=== PATIENT | male | born 1950 | race Caucasian/White ===

== ENCOUNTER 2016-08-30 10:11 | Day surgery (SDC) | payer MEDICARE, OTHER ==
--- NOTE | 2016-08-18 06:09 | HP ---
DATE OF ADMISSION: 08/30/2016 CHIEF COMPLAINT: History of colon polyps. HISTORY OF PRESENT ILLNESS: Patient is a 66-year-old male who was seen in the office today. He has a history of a large rectal polyp that did require low anterior resection in 2004. He is due for a colonoscopy as his last colonoscopy was approximately 5 to 7 years ago. He admits to chronic loose stools. Denies any rectal bleeding or melena. Patient recently had labs performed which revealed a elevated ALT and AST 124 and 76 with a bilirubin of 1.3. Alkaline phosphatase normal at 61. That led to an ultrasound being performed which showed gallstones. The patient denies abdominal pain at this time. He does have strong family history of cholecystectomy, however. He has a sister who had a history of pancreatic cancer in the past. No history of underlying liver disease. No heavy alcohol use in the past. No significant risk factors for hepatitis. PAST MEDICAL HISTORY: Obesity, colon polyps. Past surgical history is low anterior resection, kidney stones. MEDICATIONS: 1. AcipHex. 2. Hydrocodone. ALLERGIES: None. PHYSICAL EXAM: GENERAL: Well-developed, well-nourished male in no distress. HEENT is normocephalic. Sclerae nonicteric. CHEST: Clear. ABDOMEN: Soft, nontender, nondistended. IMPRESSION: A 66-year-old male being scheduled for colonoscopy on 08/30. We additionally discussed the recent findings of cholelithiasis based on his ultrasound. I do not believe that that is contributing to his elevated liver enzymes at this time. Repeat LFTs including hepatitis panel was advised. If the liver enzyme elevation persists, would consider CAT scan of the abdomen. The patient and I discussed in detail the symptoms to monitor for as it pertains to his underlying cholelithiasis. He will contact me if he begins experiencing any biliary symptoms ( ).
[2016-08-25 13:43] VITALS: BMI 34.4
[~2016-08-30 10:11] MED LIST: LACTATED RINGERS 1,000 ML IV SCH; LIDOCAINE 1% 20 ML VIAL (10MG/ML) FOR IV START INTRADERMA PRN
[2016-08-30 11:02] VITALS: RESP 16; TEMP 97.4
[2016-08-30] MEDS ORDERED: PROPOFOL 10 MG/ML 20 ML VIAL IV ONE (11:10)
--- NOTE | 2016-08-30 11:14 | P.HPADDEND ---
H&P Addendum H&P Addendum Date: 08/30/16 Patient's bowel habits are now back to normal. We'll proceed with colonoscopy today as a screening study.
--- NOTE | 2016-08-30 11:32 | P.PCN ---
Date of Procedure: 08/30/16 Procedure(s) Performed: PREOPERATIVE DIAGNOSIS: Colon cancer screening POSTOPERATIVE DIAGNOSIS: Diverticulosis PROCEDURE: Colonoscopy ANESTHESIA: MAC SURGEON: Shamar Magaña M.D. SPECIMENS: None ENDOSCOPIC PROCEDURE: The patient was placed on the endoscopy table in the left decubitus position. The Olympus colonoscope was inserted into the anus and passed under direct visualization to the base of the cecum. The appendiceal orifice was visualized. From that point the scope was slowly withdrawn inspecting all surfaces carefully. There were no neoplastic inflammatory or polypoid lesions throughout the cecum, ascending, transverse, descending and rectum. There was mild sided diverticulosis present in the left side of the colon. Prior colorectal anastomosis appeared normal. Digital rectal examination was normal. The patient was taken to the recovery room in stable condition per anesthesia guidelines. RECOMMENDATIONS: Increase fiber. Follow colonoscopy 5 years.
[2016-08-30 12:17] VITALS: BP 130/77; PULSE 77
== END 2016-08-30 12:18 | disposition home or self-care (01) ==
LOC: ORWHC2ENDO 10:11
PROVIDERS: ATTEND Surgery
DX: Z12.11 Encounter for screening for malignant neoplasm of colon (principal); Z86.010 Personal history of colon polyps; K57.30 Diverticulosis of large intestine without perforation or abscess without bleeding; K21.9 Gastro-esophageal reflux disease without esophagitis; Z79.891 Long term (current) use of opiate analgesic; Z79.899 Other long term (current) drug therapy; Z91.041 Radiographic dye allergy status
CPT/HCPCS: J2704; G0105; 99153

== ENCOUNTER 2017-11-17 18:21 | Observation (INO) | payer MEDICARE ==
--- NOTE | 2017-11-17 19:01 | ED ---
Chest Pain HPI - General Source: patient, RN notes reviewed Mode of arrival: wheelchair Limitations: no limitations - History of Present Illness MD Complaint: chest pain, other <Oc Hartley - Last Filed: 11/17/17 19:01> <Jim Costa - Last Filed: 11/17/17 23:18> - General Chief Complaint: Chest Pain Stated Complaint: Chest pain Time Seen by Provider: 11/17/17 18:37 - History of Present Illness Initial Comments: This is a 67-year-old male with a history of cholecystectomy in July which didn't apparently demonstrate stage III precancerous cells who had a bile duct resection on November 02 at [facility] who presents today with complaints of intermittent episodes of left-sided chest pain sharp in nature. The first episode was 2 days ago lasting about 30 seconds. Yesterday he had a couple episodes of occurred early in the morning and then today at least 2 other episodes. The pain when it does come on is rather severe currently he is pain- free at this time he denies any fevers chills nausea vomiting or sweats he does complain feeling short of breath however. He does feel like he has labored breathing he has no known history of heart or lung disease. No cough or phlegm production or other symptoms at this time (Oc Hartley) - Related Data Home Medications Medication Instructions Recorded Confirmed Hydrocodone/Acetaminophen [Vicodin 1 tab PO DIRECTED PRN 08/25/16 11/17/17 Hp 10-300 mg Tablet] Magnesium Hydroxide [Milk of 400 mg PO BID 11/17/17 11/17/17 Magnesia] Pantoprazole Sodium [Protonix] 20 mg PO DAILY 11/17/17 11/17/17 Allergies Allergy/AdvReac Type Severity Reaction Status Date / Time Iodinated Contrast- Oral and Allergy Itching Verified 11/17/17 18:30 IV Dye [Iodinated Contrast Media - Oral and] Review of Systems ROS Other: All systems not noted in ROS Statement are negative. <Oc Hartley - Last Filed: 11/17/17 19:01> ROS Other: All systems not noted in ROS Statement are negative. <Jim Costa - Last Filed: 11/17/17 23:18> ROS Statement: Those systems with pertinent positive or pertinent negative responses have been documented in the HPI. EKG Findings - EKG Results: EKG: interpreted by ERMD (Normal sinus rhythm of 81 a NJ interval 146 QRS duration 106 daily since QTC 386/448 evidence a left axis deviation no acute ST- T wave changes.) <Oc Hartley - Last Filed: 11/17/17 19:01> Past Medical History Additional Past Medical History / Comment(s): HX OF COLON POLYP, HX OF KIDNEY STONES, CURRENT GALLSTONE, CHRONIC BACK PAIN History of Any Multi-Drug Resistant Organisms: None Reported Past Surgical History: Bowel Resection, Cholecystectomy Additional Past Surgical History / Comment(s): LITHOTRIPSY bile duct resection Past Anesthesia/Blood Transfusion Reactions: No Reported Reaction Past Psychological History: No Psychological Hx Reported Smoking Status: Never smoker Past Alcohol Use History: None Reported Past Drug Use History: None Reported - Past Family History Sister(s) Family Medical History: Cancer <Oc Hartley - Last Filed: 11/17/17 19:01> General Exam Limitations: no limitations General appearance: alert, anxious Head exam: Present: atraumatic, normocephalic, normal inspection Eye exam: Present: normal appearance, PERRL, EOMI. Absent: scleral icterus, conjunctival injection, periorbital swelling ENT exam: Present: normal exam, mucous membranes moist Neck exam: Present: normal inspection. Absent: tenderness, meningismus, lymphadenopathy Respiratory exam: Present: chest wall tenderness (Tenderness palpation of the left costochondral margin no step-off or crepitation), decreased breath sounds ( Slightly diminished breath sounds no focal consolidations). Absent: respiratory distress, wheezes, rales, rhonchi, stridor Cardiovascular Exam: Present: regular rate, normal rhythm, normal heart sounds. Absent: systolic murmur, diastolic murmur, rubs, gallop, clicks GI/Abdominal exam: Present: soft, normal bowel sounds, other (Well-healed midline surgical scar evidence of wound dehiscence no erythema no drainage suture lines are clean.). Absent: distended, tenderness, guarding, rebound, rigid, pulsatile mass, hernia Rectal exam: Present: deferred Extremities exam: Present: normal inspection, full ROM, normal capillary refill. Absent: tenderness, pedal edema, joint swelling, calf tenderness Back exam: Present: normal inspection Neurological exam: Present: alert, oriented X3, CN II-XII intact Psychiatric exam: Present: normal affect, normal mood Skin exam: Present: warm, dry, intact, normal color. Absent: rash <Oc Hartley - Last Filed: 11/17/17 19:01> <Jim Costa - Last Filed: 11/17/17 23:18> - General Exam Comments Initial Comments: This is a well-developed well-nourished awake alert oriented 3 male (Oc Hartley) Course <NaeemOc - Last Filed: 11/17/17 19:01> <Jim Costa - Last Filed: 11/17/17 23:18> Vital Signs 11/17/17 18:27 Temperature 96.9 F L Pulse Rate 90 Respiratory 18 Rate Blood Pressure 153/93 O2 Sat by Pulse 99 Oximetry - Reevaluation(s) Reevaluation #1: 11/17/17 19:02 The patient's care will be endorsed to Dr. Costa (Oc Hartley) Critical Care Time <NaeemOc - Last Filed: 11/17/17 19:01> Total Critical Care Time: 60 <Jim Costa - Last Filed: 11/17/17 23:18> Critical Care Time: The patient presented with the chest pain, it hurts with a deep breaths and he also had a true major surgeries one day and this [facility] them as well as gallbladder and one in [place] that was seen initially at down bilateral duct surgery there and cardiac workup was unremarkable d-dimer is elevated we ruled out pulmonary embolism by proceeding with a CT chest angiogram I noticed his AST and ALT and alk phos days as elevated troponin was negative considering his pain with a deep breath CT angiogram was done and then he also had a pain in in the epigastric area and the pain along the incision considering that we do the CT of the abdomen CT Abdomen showed some mom and gas in the anterior abdominal wall along the side of the incision as well as in the knee L block I got hold of Dr. Yojana Herrera in [place] to discuss that with her Dr. Yojana Herrera recommended that she will get hold of him next week and she will follow-up with the patient she is not too concerned about gas in the along the incision considering his chest pain though he has been ruled out but for to evaluate him further from the cardiac, or cardiology standpoint he be admitted for 3 sets of cardiac markers under Dr. Phan service and cardiology be consulted this was discussed with the patient needs he is agreeable with (Jim Costa) Disposition <Oc Hartley - Last Filed: 11/17/17 19:01> <Jim Costa - Last Filed: 11/17/17 23:18> Clinical Impression: Chest pain, Elevated d-dimer, Abdominal pain Disposition: ADMITTED IP TO THIS [facility] Condition: Good Referrals: Valente Nash DO [Primary Care Provider] - 1-2 days
[2017-11-17 19:04] LABS: Basophils % (A) 0 %; Eosinophils # (A) 0.3 k/uL (0-0.7); Eosinophils % (A) 3 %; HCT 50.9 % (39.0-53.0); Lymphocytes # (A) 1.6 k/uL (1.0-4.8); Lymphocytes % (A) 16 %; MCH 29.6 pg (25.0-35.0); MCHC 33.5 g/dL (31.0-37.0); MCV 88.4 fL (80.0-100.0); Mean Platelet Volume 6.2; Monocytes # (A) 0.7 k/uL (0-1.0); Monocytes % (A) 7 %; Neutrophils # (A) 7.2 k/uL (1.3-7.7); Neutrophils % (A) 71 %; Platelet Count 358 k/uL (150-450); RBC 5.76 m/uL (4.30-5.90); RDW 12.6 % (11.5-15.5); WBC 10.1 k/uL (3.8-10.6)
[2017-11-17 19:15] LABS: ALT 138 U/L (21-72); AST 137 U/L (17-59); Albumin 4.4 g/dL (3.5-5.0); Alkaline Phosphatase 216 U/L (38-126); Amylase 62 U/L (30-110); Anion Gap 18 mmol/L; Blood Urea Nitrogen 19 mg/dL (9-20); Calcium 10.1 mg/dL (8.4-10.2); Carbon Dioxide 24 mmol/L (22-30); Chloride 104 mmol/L (98-107); Glucose 94 mg/dL (74-99); Lipase 191 U/L (23-300); Magnesium 2.3 mg/dL (1.6-2.3); Potassium 4.1 mmol/L (3.5-5.1); Sodium 146 mmol/L (137-145); Total Bilirubin 1.1 mg/dL (0.2-1.3); Total Protein 7.5 g/dL (6.3-8.2)
[2017-11-17 19:17] LABS: Partial Thromboplastin Time 25.1 sec (22.0-30.0)
[2017-11-17 19:18] LABS: Creatine Kinase 55 U/L (55-170)
[2017-11-17 19:22] LABS: D-Dimer 1.13 mg/L FEU (<0.60)
--- NOTE | 2017-11-17 19:22 | XR ---
EXAMINATION TYPE: XR chest 2V DATE OF EXAM: 11/17/2017 COMPARISON: None HISTORY: 67-year-old male with chest pain TECHNIQUE: PA and lateral views FINDINGS: Heart is borderline in size. Elongated/ectatic thoracic aorta. Diffuse interstitial prominence has a chronic appearance. No consolidation or pleural effusion. IMPRESSION: 1. Borderline heart size. 2. Elongated or ectatic/dilated thoracic aorta. 3. Chronic-appearing changes, possible bronchitis or asthma.
[2017-11-17] MEDS ORDERED: RX INFO: IV CONTRAST WAS GIVEN 1 EACH MISC MISCELLANE PRN (19:29)
[2017-11-17] MEDS ORDERED: methylPREDNISolone SOD SUCCI 125 MG/2 ML VIAL IV STA (19:30)
[2017-11-17] MEDS ORDERED: diphenhydrAMINE 50 MG/ML 1 ML VIAL IVP STA (19:30)
[2017-11-17 19:31] LABS: Creatine Kinase MB 0.4 ng/mL (0.0-2.4); Troponin I <0.012 ng/mL (0.000-0.034)
[2017-11-17] MEDS ORDERED: FAMOTIDINE 20 MG/2 ML VIAL IV STA (19:31)
[2017-11-17] MEDS ORDERED: MORPHINE SULFATE 4 MG/0.8 ML SYRINGE (INJ) IVP PRN (19:33)
[2017-11-17] MEDS ORDERED: ONDANSETRON 4 MG/2 ML VIAL IVP STA (19:34)
--- NOTE | 2017-11-17 20:43 | CT ---
EXAMINATION TYPE: CT chest angio for PE DATE OF EXAM: 11/17/2017 COMPARISON: NONE HISTORY: 67-year-old male with epigastric and left-sided chest pain for 2 days. Cholecystectomy 2 mon ths ago and recent bile duct resection. Epigastric and left sided chest pain x 2 days. Elevated d-dim er. TECHNIQUE: Contiguous axial scanning of the chest performed with IV Contrast, patient injected with 1 00 mL of Isovue 370. Coronal/sagittal MIP reconstructions performed. CT DLP: 523.1 mGycm Automated exposure control for dose reduction was used. FINDINGS: Heart is upper limits of normal in size without pericardial effusion. Mild LAD calcifications are not ed. Ectatic ascending aorta 3.9 cm. Ectatic great vessels with conventional arch vessel branching anatomy . Large caliber to the main right and left pulmonary arteries and 3.1 and 2.8 cm, respectively, suggest ing underlying pulmonary arterial hypertension. There is respiratory motion artifact without definite pulmonary embolus. Some of the segmental and verduzco bsegmental branches of the lower lobes are nondiagnostic. No thoracic lymphadenopathy. Evaluation of the lungs show strandy bibasilar atelectasis, right greater than left. No consolidation or pleural effusion. There is a moderate-sized hiatal hernia and some herniating abdominal fat through the diaphragmatic h iatus as well. Remainder of the abdomen will be reported separately. Bones: No osseous destructive process. IMPRESSION: 1. RESPIRATORY MOTION ARTIFACTS. SOME OF THE SEGMENTAL BRANCHES OF THE LOWER LOBES ARE NONDIAGNOSTIC. NO DEFINITE PULMONARY EMBOLUS. 2. BORDERLINE HEART SIZE AND ENLARGED CENTRAL PULMONARY ARTERIES SUGGESTING PULMONARY ARTERIAL HYPERT ENSION. 3. ECTATIC ASCENDING AORTA (3.9 CM). 4. STRANDY BIBASILAR ATELECTASIS. 5. MODERATE-SIZED HIATAL HERNIA. 6. ABDOMEN REPORTED SEPARATELY.
--- NOTE | 2017-11-17 21:00 | CT ---
EXAMINATION TYPE: CT abdomen pelvis w con DATE OF EXAM: 11/17/2017 COMPARISON: 06/08/2013 HISTORY: 67-year-old Cholecystectomy 2 months ago and recent bile duct resection. Epigastric and left sided chest pain x 2 days. Elevated d-dimer. TECHNIQUE: Contiguous axial scanning of the abdomen and pelvis following administration of 100 ml Iso kellee 300 IV contrast. Delayed images through the kidneys and coronal/sagittal reconstructions perform ed. CT DLP: 1458.1 mGycm Automated exposure control for dose reduction was used. FINDINGS: Chest reported separately. Hiatal hernia as reported on that exam. It was present back in 2013. No focal liver lesion seen. There are postsurgical changes at the julia hepatis with surgical clips a nd staple line, possible hepaticojejunostomy. There is some wall thickening of bowel at this level wi th surrounding fat stranding, no abnormal bowel dilatation. Portal venous system is patent. No mesenteric or retroperitoneal lymphadenopathy seen. Gallbladder surgically absent. Adrenal glands, left kidney, spleen, and pancreas appear within normal limits. An exophytic lateral right renal cyst is enlarged from 2013 measuring 3.3 cm versus 2.3 cm at that ti me. Incidental right ureteral aortic left renal vein. There is some inflammatory fat stranding along the superior margin of the patient's midline incision site from prior laparotomy. Mottled air collection is present along the midline and right paramedian region measuring approximately 2.5 cm, referred to sagittal image 68. Mottled air collection is cente red along the linea alba and extends just superficial and just deep to the abdominal wall musculature /fascia. There is surrounding fat stranding. Possible finger of thickened soft tissue extending to th e anterior margin of the proximal third transverse colon, refer to sagittal images 68 through 75. How ever, no significant colonic wall thickening is identified. Mild stool in the right hemicolon. Bladder urine distended. Bulky prostate gland measuring 5.9 cm wide and 6.5 cm craniocaudal impressin g on the posterior bladder base. No abnormal fluid collection in the pelvis or pelvic lymphadenopathy seen. There seems to be anastomotic staple line along the rectosigmoid junction. Bones: Mild degenerative changes of the hips. No osseous destructive process. IMPRESSION: 1. VERTICAL MIDLINE ABDOMINAL INCISION. THERE IS SOME MOTTLED AIR ALONG THE SUPERIOR MARGIN OF THE IN CISION SITE MEASURING 2.5 CM. THIS AIR IS CENTERED IN THE LINEA ALBA WITH A SMALL AMOUNT OF AIR BOTH SUPERFICIAL AND DEEP TO THE ABDOMINAL WALL MUSCULATURE/FASCIA. CORRELATE TO TIME SINCE SURGERY. PO SSIBLE RESIDUAL POSTSURGICAL AIR. IF THE PATIENT'S SURGERY WAS MORE REMOTE, THIS COULD BE SECONDARY T O INFECTION OR LESS LIKELY A SMALL FISTULA WITH THE PROXIMAL TRANSVERSE COLON. AGAIN, CLINICAL CORREL ATION IS NEEDED. 2. SUSPECT HEPATICOJEJUNOSTOMY. THERE IS SOME FAT STRANDING SMALL BOWEL WALL THICKENING AT THE ANASTO MOTIC SITE SUGGESTING ENTERITIS. IF THE PATIENT'S SURGERY WAS VERY RECENT, RESIDUAL POSTSURGICAL INFL AMMATION IS ALSO POSSIBLE. 3. VERY BULKY PROSTATE GLAND MEASURING 5.9 X 6.5 CM. CORRELATE WITH PSA, PATIENT'S SYMPTOMS, AND PHYS ICAL EXAM FINDINGS.
[2017-11-17] MEDS ORDERED: NITROGLYCERIN SL TABS 0.4 MG TAB SUBLINGUAL PRN (23:18)
[2017-11-17] MEDS ORDERED: MORPHINE SULFATE 4 MG/0.8 ML SYRINGE (INJ) IV PRN (23:18)
[2017-11-17] MEDS ORDERED: HYDROcodone/APAP 10-325MG 1 EACH TAB PO PRN (23:23)
[2017-11-18 00:49] VITALS: BMI 32.1
[2017-11-18 01:58] LABS: Creatine Kinase 50 U/L (55-170)
[2017-11-18 02:10] LABS: Creatine Kinase MB 0.3 ng/mL (0.0-2.4); Troponin I <0.012 ng/mL (0.000-0.034)
[2017-11-18 07:39] LABS: Cholesterol 146 mg/dL (<200); HDL Cholesterol 43 mg/dL (40-60); LDL Cholesterol,Calculated 87 mg/dL (0-99); Triglycerides 78 mg/dL (<150)
[2017-11-18 07:46] LABS: Creatine Kinase MB 0.4 ng/mL (0.0-2.4)
[2017-11-18 08:08] LABS: Creatine Kinase 65 U/L (55-170); Troponin I <0.012 ng/mL (0.000-0.034)
[2017-11-18] MEDS ORDERED: LISINOPRIL 10 MG TAB PO SCH (09:00)
[2017-11-18] MEDS: PANTOPRAZOLE 40 MG TABLET PO SCH (09:43)
[2017-11-18] MEDS: MAGNESIUM OXIDE 400 MG TAB PO SCH ×2 (09:43→21:20)
--- NOTE | 2017-11-18 10:04 | CONS ---
CONSULTATION Mr. Alford is a 67-year-old gentleman who is seen for cardiac evaluation. This patient's history and medical records reviewed. Essentially this patient initially underwent cholecystectomy and subsequently the patient underwent biliary duct dissection at [facility]. The patient is having sharp pain for last few days. The pain is in the upper part of the abdominal incision with some radiation along the left costal margin. Patient feeling slightly nauseated. Denies any fever or chills. The pain comes and goes. The pain is not definitely not substernal pain. The pain is sharp and increases with deep breath. The patient did undergo CT scan of the chest as well as abdomen. There was no evidence of any pulmonary embolism. The ascending aorta was slightly tortuous. There was possible some air at the site of the upper part of the incision. PAST MEDICAL HISTORY: Includes history of chronic back pain. Recent cholecystectomy, history of kidney stones. Bowel resections. HOME MEDICATIONS: Include Vicodin and Protonix and milk of magnesia. PHYSICAL EXAMINATION: At present reveals a 67-year-old gentleman who does not appear to be in any acute distress. Blood pressure is 147/85 mmHg, oxygen saturation is 94%. The patient is afebrile. HEENT: Head and ENT examination is negative. NECK: Supple. There is no increase in jugular venous pressure. Both the carotid pulses are felt. There is no bruit. Chest is symmetrical. Heart the PMI is not felt. First and second heart sounds are normal. There is no evidence of any murmur. Lungs are clear to auscultation and percussion. ABDOMEN: Soft. There is a mild tenderness noted in the upper part of his abdomen. Bowel sounds are normal. Extremities, peripheral pulses 2+. The patient's EKGs and cardiac enzymes are normal. FINAL IMPRESSION: This patient is primarily having upper abdominal pain which most likely related to recent surgery and incision. Pain is not cardiac or ischemic in origin. EKGs and cardiac enzymes are normal. We will obtain an echo and Doppler study. The patient can be treated symptomatically as far as the abdominal pain is concerned. Once the patient feels better, we can see him as an outpatient and evaluate with a stress test. MMODL / IJN: [id number] /
--- NOTE | 2017-11-18 17:09 | P.HPIM ---
History of Present Illness H&P Date: 11/18/17 Chief Complaint: Epigastric pain Mr. Alford is a 67-year-old male with a past medical history of nephrolithiasis , chronic low back pain, recent cholecystectomy done in August 2017, recent bile duct resection on November 02 at [facility] due to stage III precancerous cells presented to the hospital with a chief complaint of epigastric pain. Patient states that she started to have epigastric pain for the past couple of days and yesterday morning it radiated to the left side of the chest that prompted him to come to the ED. Patient denies having any chest pain, nausea, vomiting. Patient denies having any fevers chills or rigors. He complains that his pain is mostly around the surgical site. Patient has been walking around in the hallways and does not come half the complaints of chest pain or epigastric pain currently. He denies having any orthopnea PND or lower extremity swelling. Review of Systems REVIEW OF SYSTEMS: PSYCH: No anxiety or depression NEURO:No c/o weakness of the extremties, No facial droop, No speech abnormalities. VASCULAR: Peripheral nervous system within the normal limits no edema HEMATOLOGIC: No history of easy bleeding and bruising . No recent infections . RESPIRATORY: No cough, No SOB, No chest discomfort. IMMUNE: No infections INTEGUMENT: no rashes OPHTHALMOLOGIC: No blurry vision and no eye discharge : No dysuria or hematuria CARDIAC: No chest pain , shortness of breath , paroxysmal nocturnal dyspnea MUSCULOSKELETAL : No Aches or pains in the joints or muscles. GI: As per HPI Past Medical History Additional Past Medical History / Comment(s): HX OF COLON POLYP, HX OF KIDNEY STONES, CURRENT GALLSTONE, CHRONIC BACK PAIN History of Any Multi-Drug Resistant Organisms: None Reported Past Surgical History: Bowel Resection, Cholecystectomy Additional Past Surgical History / Comment(s): LITHOTRIPSY, bile duct resection Past Anesthesia/Blood Transfusion Reactions: No Reported Reaction Past Psychological History: No Psychological Hx Reported Smoking Status: Never smoker Past Alcohol Use History: None Reported Past Drug Use History: None Reported - Past Family History Sister(s) Family Medical History: Cancer Medications and Allergies Home Medications Medication Instructions Recorded Confirmed Type Magnesium Hydroxide [Milk of 400 mg PO BID 11/17/17 11/18/17 History Magnesia] HYDROcodone/APAP 10-325MG [[place] 1 tab PO Q4HR PRN 11/18/17 11/18/17 History 10-325] Pantoprazole Sodium [Protonix] 40 mg PO DAILY 11/18/17 11/18/17 History RABEprazole SODIUM [Aciphex] 20 mg PO DAILY 11/18/17 11/18/17 History Allergies Allergy/AdvReac Type Severity Reaction Status Date / Time Iodinated Contrast- Oral and Allergy Itching Verified 11/18/17 11:12 IV Dye [Iodinated Contrast Media - Oral and] Physical Exam Vitals: Vital Signs Temp Pulse Pulse Pulse Resp BP BP 11/18/17 16:00 98.4 F 78 16 110/58 11/18/17 12:00 97.7 F 99 16 130/74 11/18/17 08:00 97.9 F 100 18 147/85 11/18/17 04:00 98.2 F 91 16 128/75 11/18/17 00:21 98.1 F 103 H 18 118/74 11/18/17 00:00 95 18 11/17/17 23:25 90 16 113/73 11/17/17 18:27 96.9 F L 90 18 153/93 Pulse Ox 11/18/17 16:00 96 11/18/17 12:00 95 11/18/17 08:00 94 L 11/18/17 04:00 95 11/18/17 00:21 94 L 11/18/17 00:00 11/17/17 23:25 97 11/17/17 18:27 99 Intake and Output 11/18/17 11/18/17 11/18/17 06:59 14:59 22:59 Other: Voiding Method Toilet Toilet Toilet # Voids 3 Weight 100.1 kg GENERAL EXAM GEN. APPEARANCE: alert, in no apparent distress HEAD EXAM: atraumatic, normocephalic, normal inspection EYE EXAM: normal appearance, PERRL, EOMI. Absent: scleral icterus, conjunctival injection, periorbital swelling ENT EXAM: normal exam, mucous membranes moist NECK EXAM: normal inspection. Absent: tenderness, meningismus, full ROM, lymphadenopathy RESPIRATORY EXAM: normal lung sounds bilaterally. Absent: respiratory distress , wheezes, rales, rhonchi, stridor CARDIOVASCULAR EXAM: regular rate, normal rhythm, normal heart sounds. Absent : systolic murmur, diastolic murmur, rubs, gallop, clicks GI/ABDOMINAL EXAM: Surgical scar in place no signs of infection. Bowel sounds are normal. No tenderness or rigidity or guarding. EXTREMITIES EXAM: normal inspection, full ROM, normal capillary refill. Absent : tenderness, pedal edema, joint swelling, calf tenderness NEUROLOGICAL EXAM: alert, oriented X3, CN II-XII intact, motor sensory deficit PSYCHIATRIC EXAM: normal affect, normal mood SKIN EXAM: warm, dry, intact, normal color. Absent: rash Results CBC & Chem 7: 11/17/17 18:50 11/17/17 18:50 Labs: Abnormal Lab Results - Last 24 Hours (Table) 11/17/17 11/17/17 11/18/17 Range/Units 18:50 18:50 01:17 D-Dimer 1.13 H (<0.60) mg/L FEU Sodium 146 H (137-145) mmol/L AST 137 H (17-59) U/L ALT 138 H (21-72) U/L Alkaline Phosphatase 216 H (38-126) U/L Total Creatine Kinase 50 L (55-170) U/L Thrombosis Risk Factor Assmnt - Choose All That Apply Each Factor Represents 1 point: Obesity (BMI >25) Each Risk Factor Represents 2 Points: Age 61-74 years Thrombosis Risk Factor Assessment Total Risk Factor Score: 3 Thrombosis Risk Factor Assessment Level: Moderate Risk Assessment and Plan Plan: ASSESSMENT Epigastric pain History of recent abdominal surgery done on 11/02/2017 - bile duct resection due to precancerous cells Elevated liver function tests Hypernatremia PLAN Patient did get a CAT scan of the abdomen and pelvis showing air around the superior margins of the incision site. Patient is currently asymptomatic. His elevation of LFTs can be secondary to his recent abdominal surgery. Patient also had a CT for PE that has been negative. We'll continue with the current medication regimen and further recommendations to follow depending on the progress of the patient.
[2017-11-18] MEDS ORDERED: ATORVASTATIN 40 MG TAB PO SCH (21:00)
[2017-11-19 07:59] VITALS: RESP 18
[2017-11-19 08:02] LABS: Basophils # (A) 0.1 k/uL (0-0.2); Basophils % (A) 1 %; Eosinophils # (A) 0.4 k/uL (0-0.7); Eosinophils % (A) 3 %; HGB 15.6 gm/dL (13.0-17.5); Lymphocytes # (A) 2.2 k/uL (1.0-4.8); Lymphocytes % (A) 17 %; MCH 30.3 pg (25.0-35.0); MCHC 33.2 g/dL (31.0-37.0); MCV 91.2 fL (80.0-100.0); Mean Platelet Volume 6.4; Monocytes # (A) 0.8 k/uL (0-1.0); Monocytes % (A) 6 %; Neutrophils # (A) 9.5 k/uL (1.3-7.7); Neutrophils % (A) 72 %; Platelet Count 350 k/uL (150-450); RBC 5.16 m/uL (4.30-5.90); RDW 12.8 % (11.5-15.5); WBC 13.2 k/uL (3.8-10.6)
[2017-11-19] MEDS: MAGNESIUM OXIDE 400 MG TAB PO SCH (08:06)
[2017-11-19] MEDS: PANTOPRAZOLE 40 MG TABLET PO SCH (08:06)
[2017-11-19 08:20] LABS: Albumin 3.9 g/dL (3.5-5.0); Calcium 9.7 mg/dL (8.4-10.2); Potassium 4.4 mmol/L (3.5-5.1); Total Bilirubin 0.7 mg/dL (0.2-1.3); Total Protein 6.8 g/dL (6.3-8.2)
[2017-11-19] MEDS ORDERED: MORPHINE ORAL SOLN 10 MG/5 ML CUP PO PRN ×2 (08:50→09:14)
--- NOTE | 2017-11-19 10:17 | ECHOF ---
Referral Reason:chest pain MEASUREMENTS -------- HEIGHT: 175.3 cm WEIGHT: 99.8 kg BP: 107/55 RVIDd: 3.7 cm (< 3.3) IVSd: 1.4 cm (0.6 - 1.1) LVIDd: 4.2 cm (3.9 - 5.3) LVPWd: 1.4 cm (0.6 - 1.1) IVSs: 1.9 cm LVIDs: 2.9 cm LVPWs: 1.7 cm LA Diam: 3.4 cm (2.7 - 3.8) LAESV Index (A-L): 27.80 ml/m Ao Diam: 3.9 cm (2.0 - 3.7) AV Cusp: 2.5 cm (1.5 - 2.6) MV EXCURSION: 14.924 mm (> 18.000) MV EF SLOPE: 78 mm/s (70 - 150) EPSS: 1.6 cm MV E Gilles: 0.92 m/s MV DecT: 180 ms MV A Gilles: 0.68 m/s MV E/A Ratio: 1.36 AR PHT: 732 ms RAP: 5.00 mmHg RVSP: 21.84 mmHg FINDINGS -------- Sinus rhythm. This was a technically adequate study. The left ventricular size is normal. There is moderate concentric left ventricular hypertrophy. O verall left ventricular systolic function is normal with, an EF between 55 - 60 %. The right ventricle is mildly enlarged. Normal LA size by volume 22+/-6 ml/m2. The right atrium is normal in size. There is mild aortic valve sclerosis. There is mild aortic regurgitation. Mild mitral annular calcification present. There is trace mitral regurgitation. Mild tricuspid regurgitation present. Right ventricular systolic pressure is normal at < 35 mmHg. Trace/mild (physiologic) pulmonic regurgitation. The aortic root is dilated measuring 3.9cm. There is no pericardial effusion. CONCLUSIONS -------- 1. Sinus rhythm. 2. This was a technically adequate study. 3. The left ventricular size is normal. 4. There is moderate concentric left ventricular hypertrophy. 5. Overall left ventricular systolic function is normal with, an EF between 55 - 60 %. 6. The right ventricle is mildly enlarged. 7. Normal LA size by volume 22+/-6 ml/m2. 8. The right atrium is normal in size. 9. There is mild aortic valve sclerosis. 10. There is mild aortic regurgitation. 11. Mild mitral annular calcification present. 12. There is trace mitral regurgitation. 13. Mild tricuspid regurgitation present. 14. Right ventricular systolic pressure is normal at < 35 mmHg. 15. Trace/mild (physiologic) pulmonic regurgitation. 16. The aortic root is dilated measuring 3.9cm. 17. There is no pericardial effusion. EXHIBITION SPECIALIST: Vanessa Moody RDCS
[2017-11-19] MEDS ORDERED: MAGNESIUM HYDROXIDE 2,400 MG/10 ML CUP PO PRN (11:26)
[2017-11-19] MEDS ORDERED: SENNOSIDES 8.6 MG TAB PO PRN (11:27)
[2017-11-19 12:25] VITALS: BP 101/63; PULSE 66; TEMP 98
--- NOTE | 2017-11-19 22:59 | DS ---
DISCHARGE SUMMARY DATE OF ADMISSION: 11/17/2017 DATE OF DISCHARGE: 11/19/2017 DISCHARGE MEDICATIONS: 1. Milk of magnesia. 2. Senokot as needed for constipation. He is to continue his medications at home, includin. Acton. 2. Protonix. 3. AcipHex. He has not been administered any new medications at this time. He is to follow up with me in one week and follow up with Dr. Yarbrough in 2 weeks. TESTS DONE AT THE TIME OF ADMISSION: 1. Echocardiogram, which was unremarkable. 2. Chest CTA, with findings consistent with prior surgery with some strandy bibasilar atelectasis, moderate-sized hiatal hernia. HOSPITAL COURSE: The patient is a pleasant 67-year-old white male who recently underwent a bile duct resection on November 02 at [facility] due to stage III pre-cancerous cells. He presented to the hospital with acute chest/epigastric abdominal pain, found to have some free air or a little bit of retained air under the diaphragm. He was worked up by Cardiology and did not seem to have any evidence of cardiac disease. FINAL DIAGNOSES: 1. Acute atypical chest pain, resolved, most likely secondary to bile duct resection from pre-cancerous cells. 2. Elevated liver function tests due to his previous surgery. 3. Hypernatremia. PLAN: Discharge with the following medications and followup in order. CTA was negative for PE. Continue his current medical regimen. MMYANDELL / JUANCARLOSN: [id number] /
== END 2017-11-19 13:03 | disposition home or self-care (01) ==
LOC: EC 18:21 → 3OBS 23:19
PROVIDERS: ADMIT Hospitalist; ATTEND Hospitalist
DX: R07.89 Other chest pain (principal); R10.13 Epigastric pain; R79.89 Other specified abnormal findings of blood chemistry; R11.0 Nausea; E87.0 Hyperosmolality and hypernatremia; R94.5 Abnormal results of liver function studies; K83.8 Other specified diseases of biliary tract; K44.9 Diaphragmatic hernia without obstruction or gangrene; M54.5 Low back pain; G89.29 Other chronic pain; E66.9 Obesity, unspecified; Z68.32 Body mass index [BMI] 32.0-32.9, adult; Z79.899 Other long term (current) drug therapy; Z91.041 Radiographic dye allergy status; Z87.442 Personal history of urinary calculi; Z86.010 Personal history of colon polyps; Z90.49 Acquired absence of other specified parts of digestive tract
CPT/HCPCS: 99291 ×2; 96374 ×2; 96375 ×4; 36415; 93005; 93306; 85379; 83880; 80061; 80053 ×2; 82150; 82550 ×2; 82553 ×2; 83690; 83735; 84484 ×2; 85025 ×2; 85610; 85730; 71046; 71275; 74177; G0378 ×3; J1200; J2930; J2405; Q9967

== ENCOUNTER → 2017-11-27 | Outpatient (CLI) | payer MEDICARE ==
--- NOTE | 2017-11-28 07:38 | CT ---
EXAMINATION TYPE: CT abdomen wo con DATE OF EXAM: 11/27/2017 HISTORY: Benign neoplasm of extrahepatic bile ducts CT DLP: 557.9 mGycm. Automated Exposure Control for Dose Reduction was Utilized. TECHNIQUE: CT scan of the abdomen is performed without oral or IV contrast. COMPARISON: Prior CT abdomen and pelvis November 17, 2017. Older CT June 08, 2013 FINDINGS: Within the limitations of a non-contrast study, the following observations are made. LUNG BASES: Linear scarring and/or atelectasis in the lingula is present near axial image 2.. LIVER/GB: Liver remains isodense relative to spleen consistent with mild diffuse fatty infiltration. Cholecystectomy clips are redemonstrated. There are sutures at level of julia hepatis near prominent tubular structure suspected hepatojejunal anastomosis redemonstrated. There is no suspicious intrahep atic or extra hepatic biliary dilatation. PANCREAS: No significant abnormality is seen. SPLEEN: No significant abnormality is seen. ADRENALS: No significant abnormality is seen. KIDNEYS: Retroaortic left renal vein which is normal variant is redemonstrated. Stable exophytic 3.3 cm cyst lower pole level right kidney laterally. BOWEL: There is hiatal hernia containing fat and small mesenteric vessels and small portion of stomac h redemonstrated. There are additional surgical sutures in mid small bowel loops in the mid central a bdomen near axial image 39. LYMPH NODES: No greater than 1cm abdominal lymph nodes are appreciated. OSSEOUS STRUCTURES: No significant abnormality is seen. OTHER: There is anterior vertical scar in the subcutaneous tissue. Anterior lateral scarring from lap aroscopic ports also identified. IMPRESSION: Postsurgical change redemonstrated near julia hepatis and mid small bowel. No new suspici ous mass or adenopathy identified.
== END | disposition home or self-care (01) ==
LOC: RADCTMAIN 18:29
PROVIDERS: ATTEND Surgery
DX: D13.5 Benign neoplasm of extrahepatic bile ducts (principal); Z98.890 Other specified postprocedural states
CPT/HCPCS: 74150

== ENCOUNTER → 2018-09-30 | Outpatient (CLI) | payer MEDICARE ==
--- NOTE | 2018-10-01 12:50 | MR ---
EXAMINATION TYPE: MR abdomen wo con DATE OF EXAM: 09/30/2018 COMPARISON: CT of the abdomen dated 11/27/[address] abdomen pelvis dated 11/09/2017 HISTORY: Benign neoplasm of extrahepatic bile ducts, hx of cholecystectomy, family hx pancreatic ca TECHNIQUE: Multiplanar, multisequence images of the abdomen were acquired without intravenous contras t. FINDINGS: There is marked decreased intensity geographically throughout the liver on out of phase imaging in co mparison to in phase imaging data with moderate grade hepatic steatosis. The liver is somewhat subopt imally evaluated due to respiratory motion. However no new intrahepatic biliary ductal dilatation or focal signal abnormality is seen on T2-weighted imaging. On T1 there is no focal hepatic mass seen. S urgical clips are seen at the julia hepatis creating susceptibility artifact. The jejunum is intimate ly associated with the julia hepatis and therefore there is continued suspicion for a hepaticojejunos henrry. Small hiatal hernia is present. The hernia defect also contains mesenteric fat and mesenteric vessels . The spleen and adrenal glands are unremarkable in morphology as is the pancreas. No pancreatic ductal dilatation. T2 hyperintense right renal cyst is exophytic from the lower pole measuring 3 cm. Otherwise the kidne ys are symmetric. No hydronephrosis. Left renal vein is retroaortic. There is mild diastases recti. Ventral midline scar is seen within the subcutaneous tissues. No dilated bowel is seen. No greater than 1 cm short axis lymph node is seen in the abdomen or pelvis. IMPRESSION: 1. No new intrahepatic biliary ductal dilatation in this patient status post biliary ductal resection at the julia hepatis and hepaticojejunostomy. No pancreatic ductal dilatation. No fluid collection w ithin the gallbladder fossa. No new adenopathy. Intravenous contrast would be recommended if it can b e given on subsequent surveillance exams. 2. Redemonstration of a small hiatal hernia with herniation of mesenteric fat and vasculature into th e posterior mediastinum.
== END | disposition home or self-care (01) ==
LOC: RADMRIMAIN 14:25
PROVIDERS: ATTEND Surgery
DX: Z08 Encounter for follow-up examination after completed treatment for malignant neoplasm (principal); K44.9 Diaphragmatic hernia without obstruction or gangrene; Z90.49 Acquired absence of other specified parts of digestive tract; Z85.09 Personal history of malignant neoplasm of other digestive organs
CPT/HCPCS: 74181

== ENCOUNTER → 2019-09-12 | Outpatient (CLI) | payer MEDICARE ==
--- NOTE | 2019-09-13 17:07 | MR ---
EXAMINATION TYPE: MR abdomen wo/w con DATE OF EXAM: 09/12/2019 COMPARISON: 09/30/2018 HISTORY: Liver disease CONTRAST: Standard multiplanar, multisequence MRI departmental protocol utilizing 7.5 mL intravenous Gadavist g adolinium contrast. Liver has normal size and contour. Spleen is intact. Stomach appears intact. There is no evidence of pancreatic mass. The bile ducts are not dilated. Pancreatic duct appears normal. Common bile duct leif arently has been resected and there is anastomosis of the common hepatic duct with the jejunum. The i ntrahepatic bile ducts are not dilated. There is hiatal hernia noted. There is no evidence of pleural effusion. There is no sign of ascites. Kidneys have normal size. Ther e is 3.5 cm cortical cyst lateral right kidney. There is no hydronephrosis. There is no pathologic en hancement. IMPRESSION: Previous surgery. No dilated ducts. No adverse change compared to old exam.
== END | disposition home or self-care (01) ==
LOC: RADMRIMAIN 11:06
PROVIDERS: ATTEND Surgery
DX: K74.0 Hepatic fibrosis (principal); Z98.890 Other specified postprocedural states
CPT/HCPCS: 74183; A9585

== ENCOUNTER 2019-10-10 15:42 | Emergency (ER) | payer MEDICARE ==
[2019-10-10] MEDS ORDERED: SODIUM CHLORIDE 0.9% 1,000 ML IV STA (16:33)
--- NOTE | 2019-10-10 16:45 | ED ---
Fever HPI - General Chief Complaint: Fever Stated Complaint: neck & head pain Time Seen by Provider: 10/10/19 16:08 Source: patient, RN notes reviewed Mode of arrival: ambulatory Limitations: no limitations - History of Present Illness Initial Comments: This is a 69-year-old male with a history of a bile duct resection in the past who states since the surgery in October 2017 he's been having intermittent episodes of upper abdominal pain with fever and chills he states it may be as frequently as every 2 weeks sometimes every 4 weeks and sometimes every 6 weeks he states he started having similar episodes except for less abdominal pain 2 days ago. He states it starts as a pain at the base of the skull and goes up to his scalp and he starts developing a fever he's had no earache sore throat rhinorrhea cough or phlegm production. Have an episode today of urinary incontinence but denies any focal weakness was upper or lower extremities. He does intermittently have back pain none right now. No dysuria no hematuria no other symptoms reported. He is found upon arrival have a temperature 101.6 somewhat tachycardic with a heart rate of 129. Lactic acidosis as likely improved and will not be redrawn at this time. MD Complaint: fever - Related Data Home Medications Medication Instructions Recorded Confirmed Magnesium Hydroxide [Milk of 400 mg PO BID 11/17/17 11/18/17 Magnesia] HYDROcodone/APAP 10-325MG [[place] 1 tab PO Q4HR PRN 11/18/17 11/18/17 10-325] Pantoprazole Sodium [Protonix] 40 mg PO DAILY 11/18/17 11/18/17 RABEprazole SODIUM [Aciphex] 20 mg PO DAILY 11/18/17 11/18/17 Previous Rx's Medication Instructions Recorded Magnesium Hydroxide [Milk of 1,200 mg PO QID PRN ml 11/19/17 Magnesia Concentrate] Sennosides [Senokot] 8.6 mg PO DAILY PRN tab 11/19/17 Amoxicillin/Potassium Clav 1 tab PO Q12HR 3 Days #20 tab 10/10/19 [Augmentin 875-125 Tablet] Allergies Allergy/AdvReac Type Severity Reaction Status Date / Time Iodinated Contrast Media Allergy Itching Verified 10/10/19 15:48 [Iodinated Contrast Media - Oral and] Review of Systems ROS Statement: Those systems with pertinent positive or pertinent negative responses have been documented in the HPI. ROS Other: All systems not noted in ROS Statement are negative. Past Medical History Additional Past Medical History / Comment(s): HX OF COLON POLYP, HX OF KIDNEY STONES, CURRENT GALLSTONE, CHRONIC BACK PAIN History of Any Multi-Drug Resistant Organisms: None Reported Past Surgical History: Bowel Resection, Cholecystectomy Additional Past Surgical History / Comment(s): LITHOTRIPSY, bile duct resection Past Anesthesia/Blood Transfusion Reactions: No Reported Reaction Past Psychological History: No Psychological Hx Reported Smoking Status: Never smoker Past Alcohol Use History: None Reported Past Drug Use History: None Reported - Past Family History Sister(s) Family Medical History: Cancer General Exam - General Exam Comments Initial Comments: This is a well-developed well-nourished awake alert oriented 3 male Limitations: no limitations General appearance: alert, in no apparent distress Head exam: Present: atraumatic, normocephalic, normal inspection, other (3 mild tennis palpation of the scalp no step-off or crepitation) Eye exam: Present: normal appearance, PERRL, EOMI. Absent: scleral icterus, conjunctival injection, periorbital swelling ENT exam: Present: normal exam, mucous membranes moist Neck exam: Present: normal inspection, full ROM, other (No stridor JVD or bruits). Absent: tenderness, meningismus, lymphadenopathy Respiratory exam: Present: normal lung sounds bilaterally. Absent: respiratory distress, wheezes, rales, rhonchi, stridor Cardiovascular Exam: Present: normal rhythm, tachycardia, normal heart sounds. Absent: systolic murmur, diastolic murmur, rubs, gallop, clicks GI/Abdominal exam: Present: soft, normal bowel sounds. Absent: distended, tenderness, guarding, rebound, rigid Extremities exam: Present: normal inspection, full ROM, normal capillary refill. Absent: tenderness, pedal edema, joint swelling, calf tenderness Back exam: Present: normal inspection. Absent: CVA tenderness (R), CVA tenderness (L) Neurological exam: Present: alert, oriented X3, CN II-XII intact Psychiatric exam: Present: normal affect, normal mood Skin exam: Present: warm, dry, intact, normal color. Absent: rash Course Vital Signs 10/10/19 10/10/19 10/10/19 15:43 18:01 18:43 Temperature 101.6 F H 98.7 F Pulse Rate 129 H 92 74 Respiratory 16 17 16 Rate Blood Pressure 150/107 118/70 130/83 O2 Sat by Pulse 95 96 98 Oximetry - Reevaluation(s) Reevaluation #1: 10/10/19 19:24 Reevaluation if she feels much improved. He has defervesced his heart rate is return to normal he did know is when he was urinating or rigidity did have some bilateral CVA pain. CAT scan was negative for acute findings. At this juncture the reasonable assumption is that there is urinary tract infection. Patient will be placed on appropriate IV and oral antibiotics we a long discussion Medical Decision Making - Medical Decision Making Patient is feeling much improved at this time he will be discharged we did a long discussion he would prefer to go home be placed on oral antibiotics he was cautioned about when to return versus just follow up with his doctor. He is in agreement with this. - Lab Data Result diagrams: 10/10/19 16:57 10/10/19 16:57 Lab Results 10/10/19 10/10/19 10/10/19 Range/Units 16:57 16:57 16:57 WBC 13.6 H (3.8-10.6) k/uL RBC 5.73 (4.30-5.90) m/uL Hgb 17.2 (13.0-17.5) gm/dL Hct 50.9 (39.0-53.0) % MCV 88.8 (80.0-100.0) fL MCH 30.0 (25.0-35.0) pg MCHC 33.8 (31.0-37.0) g/dL RDW 12.9 (11.5-15.5) % Plt Count 174 (150-450) k/uL Neutrophils % 82 % Lymphocytes % 6 % Monocytes % 8 % Eosinophils % 0 % Basophils % 0 % Neutrophils # 11.2 H (1.3-7.7) k/uL Lymphocytes # 0.8 L (1.0-4.8) k/uL Monocytes # 1.1 H (0-1.0) k/uL Eosinophils # 0.0 (0-0.7) k/uL Basophils # 0.0 (0-0.2) k/uL Sodium 135 L (137-145) mmol/L Potassium 4.1 (3.5-5.1) mmol/L Chloride 100 (98-107) mmol/L Carbon Dioxide 23 (22-30) mmol/L Anion Gap 12 mmol/L BUN 17 (9-20) mg/dL Creatinine 0.85 (0.66-1.25) mg/dL Est GFR (CKD-EPI)AfAm >90 (>60 ml/min/1.73 sqM) Est GFR (CKD-EPI)NonAf 90 (>60 ml/min/1.73 sqM) Glucose 134 H (74-99) mg/dL Plasma Lactic Acid Keith (0.7-2.0) mmol/L Calcium 9.3 (8.4-10.2) mg/dL Magnesium 2.0 (1.6-2.3) mg/dL Total Bilirubin 1.8 H (0.2-1.3) mg/dL AST 32 (17-59) U/L ALT 32 (4-49) U/L Alkaline Phosphatase 63 (38-126) U/L Total Protein 7.5 (6.3-8.2) g/dL Albumin 4.2 (3.5-5.0) g/dL Lipase 82 (23-300) U/L Urine Color Yellow Urine Appearance Clear (Clear) Urine pH 5.5 (5.0-8.0) Ur Specific [place] 1.034 (1.001-1.035) Urine Protein 1+ H (Negative) Urine Glucose (UA) Negative (Negative) Urine Ketones Trace H (Negative) Urine Blood Small H (Negative) Urine Nitrite Negative (Negative) Urine Bilirubin Negative (Negative) Urine Urobilinogen <2.0 (<2.0) mg/dL Ur Leukocyte Esterase Moderate H (Negative) Urine RBC 7 H (0-5) /hpf Urine WBC 6 H (0-5) /hpf Ur Squamous Epith Cells 1 (0-4) /hpf Urine Bacteria Rare H (None) /hpf Urine Mucus Many H (None) /hpf 10/10/19 Range/Units 16:57 WBC (3.8-10.6) k/uL RBC (4.30-5.90) m/uL Hgb (13.0-17.5) gm/dL Hct (39.0-53.0) % MCV (80.0-100.0) fL MCH (25.0-35.0) pg MCHC (31.0-37.0) g/dL RDW (11.5-15.5) % Plt Count (150-450) k/uL Neutrophils % % Lymphocytes % % Monocytes % % Eosinophils % % Basophils % % Neutrophils # (1.3-7.7) k/uL Lymphocytes # (1.0-4.8) k/uL Monocytes # (0-1.0) k/uL Eosinophils # (0-0.7) k/uL Basophils # (0-0.2) k/uL Sodium (137-145) mmol/L Potassium (3.5-5.1) mmol/L Chloride (98-107) mmol/L Carbon Dioxide (22-30) mmol/L Anion Gap mmol/L BUN (9-20) mg/dL Creatinine (0.66-1.25) mg/dL Est GFR (CKD-EPI)AfAm (>60 ml/min/1.73 sqM) Est GFR (CKD-EPI)NonAf (>60 ml/min/1.73 sqM) Glucose (74-99) mg/dL Plasma Lactic Acid Keith 3.1 H* (0.7-2.0) mmol/L Calcium (8.4-10.2) mg/dL Magnesium (1.6-2.3) mg/dL Total Bilirubin (0.2-1.3) mg/dL AST (17-59) U/L ALT (4-49) U/L Alkaline Phosphatase (38-126) U/L Total Protein (6.3-8.2) g/dL Albumin (3.5-5.0) g/dL Lipase (23-300) U/L Urine Color Urine Appearance (Clear) Urine pH (5.0-8.0) Ur Specific [place] (1.001-1.035) Urine Protein (Negative) Urine Glucose (UA) (Negative) Urine Ketones (Negative) Urine Blood (Negative) Urine Nitrite (Negative) Urine Bilirubin (Negative) Urine Urobilinogen (<2.0) mg/dL Ur Leukocyte Esterase (Negative) Urine RBC (0-5) /hpf Urine WBC (0-5) /hpf Ur Squamous Epith Cells (0-4) /hpf Urine Bacteria (None) /hpf Urine Mucus (None) /hpf - Radiology Data Radiology results: report reviewed (I did review the imaging and report no acute findings.), image reviewed Disposition Clinical Impression: Urinary tract infection, Leukocytosis Disposition: HOME SELF-CARE Condition: Good Instructions (If sedation given, give patient instructions): Fever in Adults (ED), Urinary Tract Infection in Men (ED) Additional Instructions: Prescription sent to preferred pharmacy Prescriptions: Amoxicillin/Potassium Clav [Augmentin 875-125 Tablet] 1 tab PO Q12HR 3 Days #20 tab Is patient prescribed a controlled substance at d/c from ED?: No Referrals: Valente Nash DO [Primary Care Provider] - 1-2 days
[2019-10-10 17:14] LABS: Basophils % (A) 0 %; Eosinophils % (A) 0 %; HCT 50.9 % (39.0-53.0); HGB 17.2 gm/dL (13.0-17.5); Lymphocytes # (A) 0.8 k/uL (1.0-4.8); Lymphocytes % (A) 6 %; MCHC 33.8 g/dL (31.0-37.0); MCV 88.8 fL (80.0-100.0); Mean Platelet Volume 6.7; Monocytes # (A) 1.1 k/uL (0-1.0); Monocytes % (A) 8 %; Neutrophils # (A) 11.2 k/uL (1.3-7.7); Neutrophils % (A) 82 %; Platelet Count 174 k/uL (150-450); RBC 5.73 m/uL (4.30-5.90); RDW 12.9 % (11.5-15.5); WBC 13.6 k/uL (3.8-10.6)
[2019-10-10 17:16] LABS: Appearance,Urine Clear (Clear); Bacteria,Urine Rare /hpf; Bilirubin,Urine Negative (Negative); Blood,Urine Small (Negative); Color,Urine Yellow; Glucose,Urine (UA) Negative (Negative); Ketones,Urine Trace (Negative); Leukocyte Esterase,Urine Moderate (Negative); Mucus,Urine Many /hpf; Nitrite,Urine Negative (Negative); PH, Urine 5.5 (5.0-8.0); Protein,Urine 1+ (Negative); RBC,Urine 7 /hpf (0-5); Specific Gravity,Urine 1.034 (1.001-1.035); Squamous Epithelial Cell,Urine 1 /hpf (0-4); Urobilinogen,Urine <2.0 mg/dL (<2.0); WBC,Urine 6 /hpf (0-5)
--- NOTE | 2019-10-10 17:18 | XR ---
EXAMINATION TYPE: XR chest 2V DATE OF EXAM: 10/10/2019 COMPARISON: 11/17/2017 HISTORY: Chest pain TECHNIQUE: FINDINGS: There is no heart failure nor confluent pneumonic infiltrate. Heart size is normal. Thoraci c aorta is tortuous and atherosclerotic. There is no pleural effusion. Thoracic spine is intact. Ther e are no hilar masses. IMPRESSION: Atherosclerotic tortuous thoracic aorta. No active cardiopulmonary disease. No adverse ch fran compared to old exam.
[2019-10-10] MEDS ORDERED: IPRATROPIUM-ALBUTEROL 3 ML NEB INHALATION STA (17:34)
[2019-10-10 17:35] LABS: ALT 32 U/L (4-49); AST 32 U/L (17-59); African American GFR (CKD) >90 (>60 ml/min/1.73 sqM); Albumin 4.2 g/dL (3.5-5.0); Alkaline Phosphatase 63 U/L (38-126); Anion Gap 12 mmol/L; Blood Urea Nitrogen 17 mg/dL (9-20); Calcium 9.3 mg/dL (8.4-10.2); Carbon Dioxide 23 mmol/L (22-30); Chloride 100 mmol/L (98-107); Glucose 134 mg/dL (74-99); Non-African American GFR(CKD) 90 (>60 ml/min/1.73 sqM); Potassium 4.1 mmol/L (3.5-5.1); Sodium 135 mmol/L (137-145); Total Bilirubin 1.8 mg/dL (0.2-1.3); Total Protein 7.5 g/dL (6.3-8.2)
[2019-10-10] MEDS ORDERED: SODIUM CHLORIDE 0.9% 2,000 ML IV ONE (17:51)
[2019-10-10] MEDS ORDERED: diphenhydrAMINE 50 MG/ML 1 ML VIAL IVP STA (18:06)
[2019-10-10] MEDS ORDERED: FAMOTIDINE 20 MG/2 ML VIAL IV STA (18:06)
[2019-10-10] MEDS ORDERED: methylPREDNISolone SOD SUCCI 125 MG/2 ML VIAL IV STA (18:06)
[2019-10-10] MEDS ORDERED: BARIUM SULFATE 450 ML ORAL.SUSP BOTTLE PO PRN (18:07)
[2019-10-10] MEDS ORDERED: PIPERACILLIN-TAZOBACTAM 3.375 GM in SODIUM CHLORIDE 0.9% 100 ML IVPB STA (18:07)
[2019-10-10 18:45] VITALS: TEMP 98.7
--- NOTE | 2019-10-10 18:52 | CT ---
EXAMINATION TYPE: CT abdomen pelvis w con DATE OF EXAM: 10/10/2019 COMPARISON: 11/27/2017 HISTORY: abdominal pain CT DLP: 1652.7 mGycm Automated exposure control for dose reduction was used. CONTRAST: Performed with IV Contrast, patient injected with 100 mL of Isovue 300. Multiple axial sections were obtained from the diaphragm to the floor the pelvis with oral and intrav enous contrast. Lung bases are clear of infiltrate. There is hiatal hernia. There is no pleural effusion. There is no pericardial effusion. Heart size is normal. There is small amount of air in the biliary tree. There are clips from cholecystectomy. There is no p ancreatic mass. Spleen is intact. Stomach has normal size. The bile ducts are not dilated. There is no adrenal mass. Kidneys have normal size and contour. There is no hydronephrosis. There is 3.8 cm cortical cyst lateral right kidney unchanged. Ureters are not dilated. There is no retroperito mery adenopathy. There are clips from sigmoid colon surgery. Prostate is enlarged and measures 6.3 cm . Urinary bladder is intact. There is no inguinal hernia. There is no free fluid in the pelvis. There is mild prostatic calcification. There is no mesenteric edema. There is no ascites or free air. There is no evidence of a bowel obstru ction. Appendix is not seen. Lumbar vertebra have normal alignment. Disc spaces are fairly normal. Posterior elements are intact. Bony pelvis is intact. IMPRESSION: Previous sigmoid colon surgery. Small amount of air in the biliary tree consistent with reflux. Alison cystectomy. No dilated ducts. No acute abnormality within the abdomen pelvis. Hiatal hernia unchanged .
[2019-10-10] MEDS ORDERED: AMOXIC-POT CLAV 875MG STARTER PACK 2 TAB BTL PO STA (19:31)
[2019-10-10 20:09] VITALS: BP 117/71; PULSE 79; RESP 20
== END 2019-10-10 20:25 | disposition home or self-care (01) ==
LOC: EC 15:42
DX: N39.0 Urinary tract infection, site not specified (principal); D72.829 Elevated white blood cell count, unspecified; Z79.899 Other long term (current) drug therapy; Z91.041 Radiographic dye allergy status; Z90.49 Acquired absence of other specified parts of digestive tract
CPT/HCPCS: 36415; 80053; 83605; 83690; 83735; 85025; 81001; 87040; 71046; 74177; 99284; 96365; 96375 ×3; 96361 ×2; J2543; J1200; J2930; Q9967

== ENCOUNTER 2020-07-14 15:28 | Inpatient (IN) | payer MEDICARE ==
[2020-07-14] MEDS ORDERED: ACETAMINOPHEN TAB 500 MG TAB PO STA (16:27)
[2020-07-14] MEDS ORDERED: SODIUM CHLORIDE 0.9% 1,000 ML IV STA ×2 (16:27)
[2020-07-14] MEDS ORDERED: SODIUM CHLORIDE 0.9% 1,000 ML IV ONE (16:27)
[2020-07-14] MEDS ORDERED: HYDROmorphone 1 MG/ML 1 ML SYRINGE IVP STA (16:28)
[2020-07-14] MEDS: SODIUM CHLORIDE 0.9% 1,000 ML IV SCH (16:37)
[2020-07-14 16:39] LABS: Basophils % (A) 0 %; Eosinophils % (A) 0 %; HGB 17.2 gm/dL (13.0-17.5); Lymphocytes # (A) 0.9 k/uL (1.0-4.8); Lymphocytes % (A) 5 %; MCH 29.9 pg (25.0-35.0); MCHC 33.1 g/dL (31.0-37.0); Mean Platelet Volume 6.5; Monocytes # (A) 0.6 k/uL (0-1.0); Monocytes % (A) 3 %; Neutrophils # (A) 17.9 k/uL (1.3-7.7); Neutrophils % (A) 91 %; Platelet Count 214 k/uL (150-450); RBC 5.76 m/uL (4.30-5.90); WBC 19.6 k/uL (3.8-10.6)
[2020-07-14 16:42] LABS: MCV 90.4 fL (80.0-100.0)
[2020-07-14 16:48] LABS: ALT 44 U/L (4-49); AST 29 U/L (17-59); African American GFR (CKD) >90 (>60 ml/min/1.73 sqM); Albumin 3.8 g/dL (3.5-5.0); Alkaline Phosphatase 52 U/L (38-126); Anion Gap 12 mmol/L; Blood Urea Nitrogen 18 mg/dL (9-20); Calcium 9.4 mg/dL (8.4-10.2); Carbon Dioxide 20 mmol/L (22-30); Chloride 103 mmol/L (98-107); Glucose 251 mg/dL (74-99); Lipase 61 U/L (23-300); Magnesium 1.8 mg/dL (1.6-2.3); Non-African American GFR(CKD) 80 (>60 ml/min/1.73 sqM); Potassium 4.4 mmol/L (3.5-5.1); Sodium 135 mmol/L (137-145); Total Bilirubin 1.9 mg/dL (0.2-1.3); Total Protein 7.1 g/dL (6.3-8.2)
[2020-07-14 16:54] LABS: INR 1.1 (<1.2); Partial Thromboplastin Time 26.4 sec (22.0-30.0)
[2020-07-14 16:58] LABS: D-Dimer 1.4 mg/L FEU (<0.60)
[2020-07-14] MEDS ORDERED: diphenhydrAMINE 50 MG/ML 1 ML VIAL IVP STA (17:16)
[2020-07-14] MEDS ORDERED: methylPREDNISolone SOD SUCCI 125 MG/2 ML VIAL IV STA (17:16)
[2020-07-14] MEDS ORDERED: FAMOTIDINE 20 MG/2 ML VIAL IV STA (17:16)
--- NOTE | 2020-07-14 17:16 | ED ---
Chest Pain HPI - General Chief Complaint: Chest Pain Stated Complaint: Chest/shoulder pain Time Seen by Provider: 07/14/20 16:03 Source: patient, RN notes reviewed, old records reviewed Mode of arrival: ambulatory Limitations: no limitations - History of Present Illness Initial Comments: Since a 70-year-old male presents the ER today for complaints of chest discomfort shortness of breath and pain between bilateral shoulder aches for the past day. He rest the emergency department with fever 101. Patient reports no significant cough. He reports that he's had intermittent fevers and discomfort like this in his had problems with his gallbladder and infected common bile duct after surgery in 2018. - Related Data Home Medications Medication Instructions Recorded Confirmed Pantoprazole Sodium [Protonix] 40 mg PO DAILY PRN 07/14/20 07/14/20 Tylenol (Unknown Strength) 3 tab PO ONETIME PRN 07/14/20 07/14/20 Vicodin (Unknown Strength) 1 tab PO ONETIME PRN 07/14/20 07/14/20 Allergies Allergy/AdvReac Type Severity Reaction Status Date / Time Iodinated Contrast Media Allergy Itching Verified 07/14/20 17:14 [Iodinated Contrast Media - Oral and] Review of Systems ROS Statement: Those systems with pertinent positive or pertinent negative responses have been documented in the HPI. ROS Other: All systems not noted in ROS Statement are negative. EKG Findings - EKG Comments: EKG Findings:: EKG shows sinus tachycardia left axis deviation. Abnormal EKG. Ventricular rate of 108 bpm. Verbal is 154 ms. QS duration is 98 ms. QT QTc is 336/450 ms. Past Medical History Additional Past Medical History / Comment(s): HX OF COLON POLYP, HX OF KIDNEY STONES, CURRENT GALLSTONE, CHRONIC BACK PAIN History of Any Multi-Drug Resistant Organisms: None Reported Past Surgical History: Bowel Resection, Cholecystectomy Additional Past Surgical History / Comment(s): LITHOTRIPSY, bile duct resection Past Anesthesia/Blood Transfusion Reactions: No Reported Reaction Past Psychological History: No Psychological Hx Reported Smoking Status: Never smoker Past Alcohol Use History: None Reported Past Drug Use History: None Reported - Past Family History Sister(s) Family Medical History: Cancer General Exam - General Exam Comments Initial Comments: Alert and oriented 70-year-old male. Limitations: no limitations General appearance: alert, in no apparent distress Head exam: Present: atraumatic, normocephalic, normal inspection Eye exam: Present: normal appearance, PERRL, EOMI. Absent: scleral icterus, conjunctival injection, periorbital swelling ENT exam: Present: normal exam, mucous membranes moist Neck exam: Present: normal inspection. Absent: tenderness, meningismus, lymphadenopathy Respiratory exam: Present: normal lung sounds bilaterally. Absent: respiratory distress, wheezes, rales, rhonchi, stridor Cardiovascular Exam: Present: regular rate, normal rhythm, normal heart sounds. Absent: systolic murmur, diastolic murmur, rubs, gallop, clicks GI/Abdominal exam: Present: soft, normal bowel sounds. Absent: distended, tenderness, guarding, rebound, rigid Extremities exam: Present: normal inspection, full ROM, normal capillary refill. Absent: tenderness, pedal edema, joint swelling, calf tenderness Back exam: Present: normal inspection Neurological exam: Present: alert, oriented X3, CN II-XII intact Psychiatric exam: Present: normal affect, normal mood Skin exam: Present: warm, dry, intact, normal color. Absent: rash Course Vital Signs 07/14/20 07/14/20 07/14/20 15:33 16:06 17:33 Temperature 98 F 101.1 F H 98.7 F Pulse Rate 118 H 90 Respiratory 18 18 Rate Blood Pressure 167/106 118/63 O2 Sat by Pulse 97 97 Oximetry 07/14/20 18:41 Temperature 99 F Pulse Rate 90 Respiratory 18 Rate Blood Pressure 115/65 O2 Sat by Pulse 98 Oximetry Chest Pain MDM - MDM A 70-year-old male presents today with complaints of of chest and shoulder pain fever shortness of breath today. Patient was given IV fluids and blood cultures were completed. White blood cell count is elevated at 19,000. Patient had negative crossover process. Patient had a positive d-dimer and CT chest and is complaining show no signs of PE. His troponin is negative. His does report history of infections and from bile duct and his urine was 1.9. The son is no abdominal pain on reevaluation after Dilaudid and Tylenol and fluids he is improving. His discussed concern for fever of unknown origin at this time with white blood cell count of 19,000. He was given 1 dose of Rocephin. I discussed the case with Dr. Velez who discussed the case with the . We'll admit the Patient for repeat troponins and to follow-up her blood culture fever of unknown origin. EKG performed at 1543 showed sinus tachycardia left axis deviation. Abnormal EKG. Ventricular rate of 108 beats per minute. Intervals 164 ms. Respirations 98 ms. QT QTc is 336/[address] shows hiatal hernia and a screening of air in the biliary tree compared old exam. Includes of dilated bowel in the mid abdomen, really to previous surgery minimal obstruction. Unchanged compared old exam. Marked enlarged prostate unchanged. Chest x-ray shows no evidence of a molded. Mild subsegmental atelectasis and scarring at the lung base unchanged compared old exam. Hiatal hernia unchanged. Minimal fibrotic she is on chest x-ray with no active cardiac disease. No change compared old exam. Disposition Clinical Impression: Fever, Shoulder pain, Dyspnea Disposition: ADMITTED IP TO THIS HOSP Condition: Stable Is patient prescribed a controlled substance at d/c from ED?: No Referrals: Valente Nash DO [Primary Care Provider] - 1-2 days Time of Disposition: 19:43
--- NOTE | 2020-07-14 17:42 | XR ---
EXAMINATION TYPE: XR chest 2V DATE OF EXAM: 07/14/2020 COMPARISON: 10/10/2019 HISTORY: Chest pain TECHNIQUE: 2 views FINDINGS: There is no heart failure nor confluent pneumonic infiltrate. Costophrenic angles are clear . Thoracic aorta is atheromatous. There is slight increased interstitial density left lower lobe. IMPRESSION: Minimal fibrotic changes. No active cardiopulmonary disease. No change compared to old ex am.
--- NOTE | 2020-07-14 18:45 | CT ---
EXAMINATION TYPE: CT chest angio for PE DATE OF EXAM: 07/14/2020 COMPARISON: 11/17/2017 HISTORY: Generlized pain and shortness of breath. CT DLP: 615.3 mGycm Automated exposure control for dose reduction was used. CONTRAST: Performed with IV Contrast, patient injected with 100 mL of Isovue 370. There are 3-D post processed images. There is mild subsegmental atelectasis at the lung bases. There is hiatal hernia that contains fat an d small part of the gastric fundus. Heart size is normal. There is no pericardial effusion. There is no mediastinal adenopathy. There are no hilar masses. There is normal contrast opacification of the pulmonary arteries. There are no filling defects. The b cami thorax is intact. Sternum is intact. IMPRESSION: No evidence of pulmonary embolism. Mild subsegmental atelectasis and scarring at the lung bases uncha nged compared to old exam. Hiatal hernia unchanged.
--- NOTE | 2020-07-14 18:54 | CT ---
EXAMINATION TYPE: CT abdomen pelvis w con DATE OF EXAM: 07/14/2020 COMPARISON: 10/10/2019 HISTORY: Generlized pain and shortness of breath. CT DLP: 1866.4 mGycm Automated exposure control for dose reduction was used. CONTRAST: Performed with IV Contrast, patient injected with 100 mL of Isovue 370. There is minimal subsegmental atelectasis at the lung bases. There is hiatal hernia that contains fat . There are clips from cholecystectomy. Liver shows no focal defect. Spleen is intact. There is no pa ncreatic mass. The stomach is intact. The bile ducts are not dilated. There is no adrenal mass. Kidneys show satisfactory contrast opacification. There is no hydronephrosi s. Delayed images show normal renal excretion. There is 4 cm cortical cyst lateral right kidney. Ther e is no retroperitoneal adenopathy. Bladder distends smoothly. There is no inguinal hernia. There is 6.6 cm enlarged prostate. There is prostatic calcification. There is no free fluid in the pelvis. There is no mesenteric edema. There is no ascites or free air. There is a single loop of small bowel in the mid abdomen anteriorly with dilation up to 4.3 cm. There is surgical clips. There is previous surgery at the rectosigmoid junction. The lumbar vertebra have fairly normal spacing and alignment. Bony pelvis is intact. Hip joints are i ntact. IMPRESSION: Hiatal hernia. There is clearing of the air in the biliary tree compared to old exam. Single loop of dilated small bowel in the mid abdomen could relate to previous surgery and minimal ob struction. This appears unchanged compared to old exam. Markedly enlarged prostate unchanged.
[2020-07-14 19:05] LABS: Appearance,Urine Clear (Clear); Bilirubin,Urine Negative (Negative); Blood,Urine Negative (Negative); Color,Urine Yellow; Glucose,Urine (UA) 3+ (Negative); Ketones,Urine Trace (Negative); Leukocyte Esterase,Urine Negative (Negative); Nitrite,Urine Negative (Negative); Protein,Urine Trace (Negative); Urobilinogen,Urine <2.0 mg/dL (<2.0)
[2020-07-14 19:12] LABS: Specific Gravity,Urine >1.050 (1.001-1.035)
[2020-07-14] MEDS ORDERED: cefTRIAXone IN SWFI 1,000 MG/10 ML SYRINGE IVP STA (19:37)
[2020-07-14] MEDS ORDERED: NITROGLYCERIN SL TABS 0.4 MG TAB SUBLINGUAL PRN (19:45)
[2020-07-14] MEDS ORDERED: TYLENOL PO PRN (19:47)
[2020-07-14] MEDS ORDERED: PANTOPRAZOLE 40 MG TABLET PO PRN (19:47)
[2020-07-14] MEDS ORDERED: VICODIN PO PRN (19:47)
[2020-07-15 03:49] LABS: Cholesterol 120 mg/dL (<200); HDL Cholesterol 41 mg/dL (40-60); LDL Cholesterol,Calculated 66 mg/dL (0-99); Triglycerides 63 mg/dL (<150)
[2020-07-15] MEDS: SODIUM CHLORIDE 0.9% 1,000 ML IV SCH (05:36)
[2020-07-15 07:42] VITALS: BP 133/84; PULSE 80; RESP 14; TEMP 97.7
[2020-07-15] MEDS ORDERED: ASPIRIN 325 MG TAB PO SCH (09:00)
[2020-07-15] MEDS ORDERED: SODIUM CHLORIDE 0.9% 1,000 ML IV ONE (11:40)
--- NOTE | 2020-07-15 12:16 | P.HPIM ---
History of Present Illness 61-year-old pleasant male came in with complains of pain in the left shoulder area which is mild to moderate in severity presently 1/10 in severity changes without movement of the shoulder. It appears to be musculoskeletal. Denied any associated shortness of breath patient had a fever of 101. Patient was admitted and underwent extensive evaluation including CT angios of the chest which did not show any pulmonary embolism or pneumonia. Patient had an abdominal CAT scan as well which showed small dilated loop of small bowel. Patient had history of cholecystectomy followed up by some reconstructive surgery for bilateral isn't patient that usually has body aches and fevers once in every 2-3 weeks initially patient was on antibiotics for that later he was told he will not need any antibiotics and patient has been not taking anti-inflammatory is on as-needed basis but patient came in this time because of the shoulder pain. Patient was also complaining of pain in the lower thoracic vertebrae CT of the chest or abdomen did not show any significant abnormalities or any infection in the cervical thoracic or lumbar vertebrae. Cardiac he was consulted although patient pain doesn't appear to be cardiacas shortness of breath no diaphoresis associated with that chest pain is nonpruritic in nature. Patient has musculosk eletal shoulder pain. Patient usually follows up with his chiropractor for back issues but has not been seeing him because of the pandemic. Review of Systems REVIEW OF SYSTEMS: CONSTITUTIONAL: As mentioned in HPI HEENT: No recent visual problems or hearing problems. Denied any sore throat. CARDIOVASCULAR: No chest pain, orthopnea, PND, no palpitations, no syncope. PULMONARY: No shortness of breath, no cough, no hemoptysis. GASTROINTESTINAL: No diarrhea, no nausea, no vomiting, no abdominal pain. NEUROLOGICAL: No headaches, no weakness, no numbness. HEMATOLOGICAL: Denies any bleeding or petechiae. GENITOURINARY: Denies any burning micturition, frequency, or urgency. MUSCULOSKELETAL/RHEUMATOLOGICAL: As mentioned in HPI ENDOCRINE: Denies any polyuria or polydipsia. The rest of the 14-point review of systems is negative. Past Medical History Additional Past Medical History / Comment(s): HX OF COLON POLYP, HX OF KIDNEY STONES, CURRENT GALLSTONE, CHRONIC BACK PAIN History of Any Multi-Drug Resistant Organisms: None Reported Past Surgical History: Bowel Resection, Cholecystectomy Additional Past Surgical History / Comment(s): LITHOTRIPSY, bile duct resection Past Anesthesia/Blood Transfusion Reactions: No Reported Reaction Past Psychological History: No Psychological Hx Reported Smoking Status: Never smoker Past Alcohol Use History: None Reported Past Drug Use History: None Reported - Past Family History Sister(s) Family Medical History: Cancer Medications and Allergies Home Medications Medication Instructions Recorded Confirmed Type Pantoprazole Sodium [Protonix] 40 mg PO DAILY PRN 07/14/20 07/14/20 History Tylenol (Unknown Strength) 3 tab PO ONETIME PRN 07/14/20 07/14/20 History Vicodin (Unknown Strength) 1 tab PO ONETIME PRN 07/14/20 07/14/20 History Allergies Allergy/AdvReac Type Severity Reaction Status Date / Time Iodinated Contrast Media Allergy Itching Verified 07/14/20 17:14 [Iodinated Contrast Media - Oral and] Physical Exam Vitals: Vital Signs Temp Pulse Pulse Resp BP BP Pulse Ox 07/15/20 07:41 97.7 F 80 14 133/84 95 07/15/20 07:18 95 07/15/20 03:00 16 07/15/20 02:13 98.1 F 77 16 147/74 95 07/14/20 23:29 80 18 120/70 98 07/14/20 18:41 99 F 90 18 115/65 98 07/14/20 17:33 98.7 F 90 18 118/63 97 07/14/20 16:06 101.1 F H 07/14/20 15:33 98 F 118 H 18 167/106 97 Intake and Output 07/14/20 07/15/20 07/15/20 22:59 06:59 14:59 Other: Voiding Method Toilet Toilet # Voids 1 Weight 108.862 kg 108.862 kg PHYSICAL EXAMINATION: GENERAL: The patient is alert and oriented x3, not in any acute distress. Well developed, well nourished. HEENT: Pupils are round and equally reacting to light. EOMI. No scleral icterus. No conjunctival pallor. Normocephalic, atraumatic. No pharyngeal erythema. No thyromegaly. CARDIOVASCULAR: S1 and S2 present. No murmurs, rubs, or gallops. PULMONARY: Chest is clear to auscultation, no wheezing or crackles. ABDOMEN: Soft, nontender, nondistended, normoactive bowel sounds. No palpable organomegaly. MUSCULOSKELETAL: Minimal pain in the left shoulder with passive and active movements predominantly abduction about 90 EXTREMITIES: No cyanosis, clubbing, or pedal edema. NEUROLOGICAL: Gross neurological examination did not reveal any focal deficits. SKIN: No rashes. Results CBC & Chem 7: 07/14/20 16:31 07/14/20 16:31 Labs: Abnormal Lab Results - Last 24 Hours (Table) 07/14/20 07/14/20 07/14/20 Range/Units 16:31 16:31 16:31 WBC 19.6 H (3.8-10.6) k/uL Neutrophils # 17.9 H (1.3-7.7) k/uL Lymphocytes # 0.9 L (1.0-4.8) k/uL D-Dimer 1.40 H (<0.60) mg/L FEU Sodium 135 L (137-145) mmol/L Carbon Dioxide 20 L (22-30) mmol/L Glucose 251 H (74-99) mg/dL Plasma Lactic Acid Keith (0.7-2.0) mmol/L Total Bilirubin 1.9 H (0.2-1.3) mg/dL Ur Specific Snover (1.001-1.035) Urine Protein (Negative) Urine Glucose (UA) (Negative) Urine Ketones (Negative) 07/14/20 07/14/20 07/14/20 Range/Units 18:51 19:36 22:45 WBC (3.8-10.6) k/uL Neutrophils # (1.3-7.7) k/uL Lymphocytes # (1.0-4.8) k/uL D-Dimer (<0.60) mg/L FEU Sodium (137-145) mmol/L Carbon Dioxide (22-30) mmol/L Glucose (74-99) mg/dL Plasma Lactic Acid Keith 2.5 H* 3.3 H* (0.7-2.0) mmol/L Total Bilirubin (0.2-1.3) mg/dL Ur Specific Snover >1.050 H (1.001-1.035) Urine Protein Trace H (Negative) Urine Glucose (UA) 3+ H (Negative) Urine Ketones Trace H (Negative) 07/15/20 07/15/20 07/15/20 Range/Units 03:09 06:31 10:07 WBC (3.8-10.6) k/uL Neutrophils # (1.3-7.7) k/uL Lymphocytes # (1.0-4.8) k/uL D-Dimer (<0.60) mg/L FEU Sodium (137-145) mmol/L Carbon Dioxide (22-30) mmol/L Glucose (74-99) mg/dL Plasma Lactic Acid Keith 3.8 H* 3.7 H* 2.8 H* (0.7-2.0) mmol/L Total Bilirubin (0.2-1.3) mg/dL Ur Specific Snover (1.001-1.035) Urine Protein (Negative) Urine Glucose (UA) (Negative) Urine Ketones (Negative) Thrombosis Risk Factor Assmnt - Choose All That Apply Each Factor Represents 1 point: Obesity (BMI >25) Each Risk Factor Represents 2 Points: Age 61-74 years Thrombosis Risk Factor Assessment Total Risk Factor Score: 3 Thrombosis Risk Factor Assessment Level: Moderate Risk Assessment and Plan Plan: Fever systemic inflammatory response and lactic is doses and leukocytosis: There is no clear evidence of infection. All the workup is negative consider that saravanan trujillo had similar symptoms in the past and was evaluated in the past for the same thing patient will not be started on any antibiotics at this time patient will be monitored for a few more hours to make sure patient is afebrile for more than 24 hours. Patient will be given a liter bolus for lactic acidosis which I don't have a good explanation for her. We ruled out all the common source of infection counseling the back pain I reviewed the CAT scans doesn't appear to have any infection in the vertebrae. Patient will be discharged without any antibiotics if he is afebrile today but if he continues to have fevers patient made to come back or call PCP. Patient is hemodynamically stable. His a systemic inflammatory response a pO2 be be noninfectious -Left shoulder pain. To be musculoskeletal noncardiac patient will be evaluated by cardiology troponins were negative EKG no significant abnormalities. -History of cholecystectomy and reconstruction of bile duct postoperative to course was complicated by frequent fevers. Ruled out Covid 19 infection -Patient is probably new onset diabetic will obtain hemoglobin A1c patient has increased blood sugars patient will be started on glipizide at low-dose
--- NOTE | 2020-07-15 16:05 | P.CRDCN ---
History of Present Illness History of present illness: HISTORY OF PRESENTING ILLNESS This is a pleasant 70-year-old male past medical history significant for kidney stones, gallstones, chronic back pain and prior bowel resection. Patient presents secondary to recurrent episodes of abdominal pain, back pain, fevers, headache and diaphoresis which have been ongoing for the past few years ever since he had a bowel resection. Patient is unclear as to what is causing this however he will have episodes approximately once every 6 weeks and usually only lasts for a few hours then resolves. He admits that occasionally there is chest pain involved as well. Yesterday he admitted to feeling of chest pressure during the episode. Patient was concerned and therefore came to the emergency department. He was found to have a fever of 101, CT abdomen and pelvis showed hiatal hernia, loop of dilated small bowel and enlarged prostate. Additionally he had a CTA of the chest which showed no PE and mild atelectasis. He had troponins which were normal. Blood work showed a white count of 19.6, as well as mildly elevated lactic acid. ProBNP noted to be normal at 87. LDL 66. Patient states today he feels back to normal without any complaints. DIAGNOSTICS EKG reveals mild sinus tachycardia, left axis deviation, no significant ST or T- wave abnormalities. REVIEW OF SYSTEMS At the time of my exam: CONSTITUTIONAL: + fever, no chills. CARDIOVASCULAR: +chest pain, no orthopnea, PND or palpitations. RESPIRATORY: Denies cough. GASTROINTESTINAL: +abdominal pain, no diarrhea, constipation, nausea or vomiting. MUSCULOSKELETAL: Denies myalgias. NEUROLOGIC: Denies numbness, tingling or weakness. ENDOCRINE: Denies fatigue, weight change, polydipsia or polyurina. GENITOURINARY: Denies burning, hematuria or urgency with micturation. HEMATOLOGIC: Denies history of anemia or bleeding. PHYSICAL EXAMINATION Blood pressure 133/84 heart rate 80 afebrile and maintaining oxygen saturation on room air. CONSTITUTIONAL: No apparent distress. HEENT: Head is normocephalic. Pupils are equal, round. Sclerae anicteric. Mucous membranes of the mouth are moist. No JVD. No carotid bruit. CHEST EXAMINATION: Lungs are clear to auscultation. No chest wall tenderness is noted on palpation or with deep breathing. HEART EXAMINATION: Regular rate and rhythm. S1, S2 heard. No murmurs, gallops or rub. ABDOMEN: Soft, nontender. Positive bowel sounds. EXTREMITIES: 2+ peripheral pulses, no lower extremity edema and no calf tenderness. NEUROLOGIC EXAMINATION: Patient is awake, alert and oriented x3. ASSESSMENT 1. Atypical chest pain. Troponins negative 3. Acute coronary syndrome has been ruled out. 2. SIRS with episodes of fever, lactic acidosis, leukocytosis as well as some chest pain which have been going on since his bowel surgery. CT abdomen and pelvis relatively unrevealing. 3. GERD 4. Diabetes mellitus type 2 PLAN Chest pain appears atypical with extensive workup including troponins, CT thorax, CT abdomen and pelvis unrevealing. ProBNP noted to be normal. Patient appears back to his baseline. Unclear of the etiology of his SIRS -type picture which he believes has started ever since his bowel surgery. Patient appears sta ble for discharge with outpatient follow-up. Follow-up in office in 1-2 weeks. Past Medical History Additional Past Medical History / Comment(s): HX OF COLON POLYP, HX OF KIDNEY STONES, CURRENT GALLSTONE, CHRONIC BACK PAIN History of Any Multi-Drug Resistant Organisms: None Reported Past Surgical History: Bowel Resection, Cholecystectomy Additional Past Surgical History / Comment(s): LITHOTRIPSY, bile duct resection Past Anesthesia/Blood Transfusion Reactions: No Reported Reaction Past Psychological History: No Psychological Hx Reported Smoking Status: Never smoker Past Alcohol Use History: None Reported Past Drug Use History: None Reported - Past Family History Sister(s) Family Medical History: Cancer Medications and Allergies Home Medications Medication Instructions Recorded Confirmed Type Pantoprazole Sodium [Protonix] 40 mg PO DAILY PRN 07/14/20 07/14/20 History Tylenol (Unknown Strength) 3 tab PO ONETIME PRN 07/14/20 07/14/20 History Vicodin (Unknown Strength) 1 tab PO ONETIME PRN 07/14/20 07/14/20 History glipiZIDE [Glucotrol] 2.5 mg PO AC-BID #30 tablet 07/15/20 Rx Allergies Allergy/AdvReac Type Severity Reaction Status Date / Time Iodinated Contrast Media Allergy Itching Verified 07/14/20 17:14 [Iodinated Contrast Media - Oral and] Physical Exam Vitals: Vital Signs Temp Pulse Pulse Resp BP BP Pulse Ox 07/15/20 07:41 97.7 F 80 14 133/84 95 07/15/20 07:18 95 07/15/20 03:00 16 07/15/20 02:13 98.1 F 77 16 147/74 95 07/14/20 23:29 80 18 120/70 98 07/14/20 18:41 99 F 90 18 115/65 98 07/14/20 17:33 98.7 F 90 18 118/63 97 07/14/20 16:06 101.1 F H Intake and Output 07/15/20 07/15/20 07/15/20 06:59 14:59 22:59 Other: Voiding Method Toilet Toilet # Voids 1 Weight 108.862 kg Results 07/14/20 16:31 07/14/20 16:31 Cardiac Enzymes 07/14/20 07/14/20 07/14/20 Range/Units 16:31 16:31 20:10 AST 29 (17-59) U/L Troponin I <0.012 <0.012 (0.000-0.034) ng/mL 07/14/20 Range/Units 22:45 AST (17-59) U/L Troponin I <0.012 (0.000-0.034) ng/mL Coagulation 07/14/20 Range/Units 16:31 PT 11.0 (9.0-12.0) sec APTT 26.4 (22.0-30.0) sec Lipids 07/15/20 Range/Units 03:09 Triglycerides 63 (<150) mg/dL Cholesterol 120 (<200) mg/dL HDL Cholesterol 41 (40-60) mg/dL CBC 07/14/20 Range/Units 16:31 WBC 19.6 H (3.8-10.6) k/uL RBC 5.76 (4.30-5.90) m/uL Hgb 17.2 (13.0-17.5) gm/dL Hct 52.0 (39.0-53.0) % Plt Count 214 (150-450) k/uL Comprehensive Metabolic Panel 07/14/20 Range/Units 16:31 Sodium 135 L (137-145) mmol/L Potassium 4.4 (3.5-5.1) mmol/L Chloride 103 (98-107) mmol/L Carbon Dioxide 20 L (22-30) mmol/L BUN 18 (9-20) mg/dL Creatinine 0.97 (0.66-1.25) mg/dL Glucose 251 H (74-99) mg/dL Calcium 9.4 (8.4-10.2) mg/dL AST 29 (17-59) U/L ALT 44 (4-49) U/L Alkaline Phosphatase 52 (38-126) U/L Total Protein 7.1 (6.3-8.2) g/dL Albumin 3.8 (3.5-5.0) g/dL Intake and Output 07/15/20 07/15/20 07/15/20 06:59 14:59 22:59 Other: Voiding Method Toilet Toilet # Voids 1 Weight 108.862 kg 07/14/20 16:31 07/14/20 16:31
[2020-07-15 22:38] LABS: Hemoglobin A1C 5.5 % (4.0-6.0)
[2020-07-18 09:38] LABS: Glucose,Whole Blood 139 mg/dL (75-99)
--- NOTE | 2020-07-19 13:50 | P.DS ---
Providers Date of admission: 07/15/20 07:28 Expected date of discharge: 07/15/20 Attending physician: Rosario Phan Consults: 07/14/20 19:45 Consult Physician Urgent Consulting Provider: Kate Dunbar Consult Reason/Comments: Chest pain Do you want consulting provider notified?: Yes Primary care physician: Valente Nash [facility] Course: Please of dementia. Father does patient was discharged on the same day. Patient Condition at Discharge: Stable Plan - Discharge Summary Discharge Rx Participant: No New Discharge Prescriptions: New glipiZIDE [Glucotrol] 2.5 mg PO AC-BID #30 tablet Continue Tylenol (Unknown Strength) 3 tab PO ONETIME PRN PRN Reason: Pain Pantoprazole Sodium [Protonix] 40 mg PO DAILY PRN PRN Reason: Gi Upset Vicodin (Unknown Strength) 1 tab PO ONETIME PRN PRN Reason: Pain Discharge Medication List Pantoprazole Sodium [Protonix] 40 mg PO DAILY PRN 07/14/20 [History] Tylenol (Unknown Strength) 3 tab PO ONETIME PRN 07/14/20 [History] Vicodin (Unknown Strength) 1 tab PO ONETIME PRN 07/14/20 [History] glipiZIDE [Glucotrol] 2.5 mg PO AC-BID #30 tablet 07/15/20 [Rx] Follow up Appointment(s)/Referral(s): Valente Nash DO [Primary Care Provider] - 3 Days Activity/Diet/Wound Care/Special Instructions: Check blood sugar in morning and evening and keep a log and take to your next appointment with Dr. Nash Discharge Disposition: HOME SELF-CARE
== END 2020-07-15 15:40 | disposition home or self-care (01) | DRG 864 ==
LOC: EC 15:28 → 1SOBS 19:32 → OBSVTOIN 07-15 07:28
PROVIDERS: ADMIT Hospitalist; ATTEND Hospitalist
DX: R50.9 Fever, unspecified (principal); J98.11 Atelectasis; R65.10 Systemic inflammatory response syndrome (SIRS) of non-infectious origin without acute organ dysfunction; R07.89 Other chest pain; G89.29 Other chronic pain; M54.9 Dorsalgia, unspecified; M25.512 Pain in left shoulder; R94.31 Abnormal electrocardiogram [ECG] [EKG]; E11.9 Type 2 diabetes mellitus without complications; K21.9 Gastro-esophageal reflux disease without esophagitis; K44.9 Diaphragmatic hernia without obstruction or gangrene; N40.0 Benign prostatic hyperplasia without lower urinary tract symptoms; Z20.828 Contact with and (suspected) exposure to other viral communicable diseases; Z79.899 Other long term (current) drug therapy; Z87.442 Personal history of urinary calculi; Z90.49 Acquired absence of other specified parts of digestive tract; Z87.19 Personal history of other diseases of the digestive system; Z86.010 Personal history of colon polyps; Z91.041 Radiographic dye allergy status; Z80.9 Family history of malignant neoplasm, unspecified
CPT/HCPCS: 36415; 71046; 71275; 74177; 80053; 80061; 81003; 83036; 83605; 83690; 83735; 83880; 84484; 85025; 85379; 85610; 85730; 87040; 87635; 93005; 94760; 96361; 96374; 96375; 99285

== ENCOUNTER → 2020-11-17 | Outpatient (CLI) | payer MEDICARE ==
--- NOTE | 2020-11-17 11:54 | XR ---
EXAMINATION TYPE: XR chest 2V DATE OF EXAM: 11/17/2020 COMPARISON: Chest x-ray and CTA chest July 14, 2020 HISTORY: Chest pain and pressure. TECHNIQUE: Frontal and lateral views of the chest are obtained. FINDINGS: There is no new suspicious focal air space opacity, pleural effusion, or pneumothorax seen . The cardiac silhouette size is stable and mildly enlarged with ectatic thoracic aorta redemonstrat ed. The osseous structures remain intact. IMPRESSION: Mild cardiomegaly without acute pulmonary process. No significant change from prior stud ies.
== END | disposition home or self-care (01) ==
LOC: RADXRMAIN 11:32
PROVIDERS: ATTEND Nurse Practitioner Family
DX: I51.7 Cardiomegaly (principal)
CPT/HCPCS: 71046

== ENCOUNTER → 2021-01-17 | Outpatient (CLI) | payer MEDICARE ==
--- NOTE | 2021-01-17 10:27 | P.STRESS ---
- Stress Test Note Stress Test Results/Findings: Exam Performed: stress test Exam Date: 01/17/21 Reason for Exam: Cardiomyopathy Height: 5 ft 10 in Weight: 108.862 kg Protocol: Hay Stage: 3 Duration of Exercise: 7:51 Resting Heart Rate: 79 Resting Blood Pressure: 116/79 Maximum Achieved Heart Rate: 137 Maximum Achieved Blood Pressure: 165/67 85% PMHR: 128 100% PMHR: 151 METS: 9.5 Technologist Comment: Stress Test Results/Findings: Mr. Canales is a 70-year-old gentleman with history of of cardiomyopathy and family history of ischemic heart disease being evaluated for cardiac status. Stress data: Baseline EKG showed sinus rhythm with normal AR interval and QRS duration with occasional PVCs and nonspecific ST-T changes. Patient walked on the Hay protocol for about 7 minutes achieving a maximum heart rate of 137 with a blood pressure 154/96. EKGs taken during and after exercise did not reveal any significant changes from the baseline. Patient did not experience any chest pain. Final impression: #1. Good excise capacity #2. Negative stress test #3. Occasional PVCs noted on resting EKG #4. Patient did not experience any chest pain. #5. No significant arrhythmias noted during exercise.
--- NOTE | 2021-01-18 11:55 | EST ---
Stress Test Results/Findings: Exam Performed: stress test Exam Date: 01/17/21 Reason for Exam: Cardiomyopathy Height: 5 ft 10 in Weight: 108.862 kg Protocol: Hay Stage: 3 Duration of Exercise: 7:51 Resting Heart Rate: 79 Resting Blood Pressure: 116/79 Maximum Achieved Heart Rate: 137 Maximum Achieved Blood Pressure: 165/67 85% PMHR: 128 100% PMHR: 151 METS: 9.5 Technologist Comment: Stress Test Results/Findings: Mr. Canales is a 70-year-old gentleman with history of of cardiomyopathy and family history of ischemic heart disease being evaluated for cardiac status. Stress data: Baseline EKG showed sinus rhythm with normal MT interval and QRS duration with occasional PVCs and nonspecific ST-T changes. Patient walked on the Hay protocol for about 7 minutes achieving a maximum heart rate of 137 with a blood pressure 154/96. EKGs taken during and after exercise did not reveal any significant changes from the baseline. Patient did not experience any chest pain. Final impression: #1. Good excise capacity #2. Negative stress test #3. Occasional PVCs noted on resting EKG #4. Patient did not experience any chest pain. #5. No significant arrhythmias noted during exercise. MTDD
== END | disposition home or self-care (01) ==
LOC: RADNMMAIN 08:37
PROVIDERS: ATTEND Family Medicine
DX: I49.3 Ventricular premature depolarization (principal)
CPT/HCPCS: 93017

== ENCOUNTER 2021-11-03 12:12 | Emergency (ER) | payer MEDICARE ==
[2021-11-03 12:18] VITALS: RESP 18
[2021-11-03 12:38] VITALS: TEMP 98.2
--- NOTE | 2021-11-03 12:38 | ED ---
General Adult HPI - General Chief complaint: Allergic Reaction Stated complaint: Facial swelling Time Seen by Provider: 11/03/21 12:15 Source: patient, RN notes reviewed, old records reviewed Mode of arrival: ambulatory Limitations: no limitations - History of Present Illness Initial comments: This is a 71-year-old male who presents emergency department stating that on Sunday he got Bactrim for urinary tract infection on Sunday night he started having swelling behind the angle of his mandible and is progressively has worsened it's extremely tender to touch and mildly erythematous. Patient denies any fever chills. Patient denies any drainage in his mouth. Patient denies any dental pain. Patient denies any ear pain. Patient denies any throat pain difficulty swallowing or difficulty breathing. - Related Data Home Medications Medication Instructions Recorded Confirmed Sulfamethoxazole/Trimethoprim 1 tab PO BID 11/03/21 11/03/21 [Bactrim DS 800-160 mg] Previous Rx's Medication Instructions Recorded Amoxicillin/Potassium Clav 1 each PO Q12HR #40 tab 11/03/21 [Augmentin 875-125 Tablet] Ketorolac [Toradol] 10 mg PO Q6HR #15 tab 11/03/21 Allergies Allergy/AdvReac Type Severity Reaction Status Date / Time Iodinated Contrast Media Allergy IV form Verified 11/03/21 13:22 [Iodinated Contrast Media - causes Oral and] itching-ok with benadryl Review of Systems ROS Statement: Those systems with pertinent positive or pertinent negative responses have been documented in the HPI. ROS Other: All systems not noted in ROS Statement are negative. Past Medical History Additional Past Medical History / Comment(s): HX OF COLON POLYP, HX OF KIDNEY STONES, CURRENT GALLSTONE, CHRONIC BACK PAIN History of Any Multi-Drug Resistant Organisms: None Reported Past Surgical History: Bowel Resection, Cholecystectomy Additional Past Surgical History / Comment(s): LITHOTRIPSY, bile duct resection Past Anesthesia/Blood Transfusion Reactions: No Reported Reaction Past Psychological History: No Psychological Hx Reported Smoking Status: Never smoker Past Alcohol Use History: None Reported Past Drug Use History: None Reported - Past Family History Sister(s) Family Medical History: Cancer General Exam - General Exam Comments Initial Comments: GENERAL: Patient is well-developed and well-nourished. Patient is nontoxic and well- hydrated and is in no acute distress. ENT: Neck is soft and supple. No significant lymphadenopathy is noted. Oropharynx is clear. Moist mucous membranes. Patient has significant swelling in the area of the parotid gland is mildly erythematous and extremely tender to touch. EYES: The sclera were anicteric and conjunctiva were pink and moist. Extraocular movements were intact and pupils were equal round and reactive to light. Eyelids were unremarkable. SKIN: Skin is clear with no lesions or rashes and otherwise unremarkable. NEUROLOGIC: Patient is alert and oriented x3. Cranial nerves II through XII are grossly intact. Motor and sensory are also intact. Normal speech, volume and content. Symmetrical smile. MUSCULOSKELETAL: Normal extremities with adequate strength and full range of motion. LYMPHATICS: No significant lymphadenopathy is noted PSYCHIATRIC: Normal psychiatric evaluation. Limitations: no limitations Course Vital Signs 11/03/21 11/03/21 12:13 12:34 Temperature 98 F 98.2 F Pulse Rate 88 84 Respiratory 18 18 Rate Blood Pressure 163/94 129/89 O2 Sat by Pulse 96 95 Oximetry Medical Decision Making - Lab Data Result diagrams: 11/03/21 12:47 11/03/21 14:12 Lab Results 11/03/21 11/03/21 Range/Units 12:47 14:12 WBC 11.7 H (3.8-10.6) k/uL RBC 5.57 (4.30-5.90) m/uL Hgb 17.6 H (13.0-17.5) gm/dL Hct 50.9 (39.0-53.0) % MCV 91.3 (80.0-100.0) fL MCH 31.5 (25.0-35.0) pg MCHC 34.5 (31.0-37.0) g/dL RDW 12.7 (11.5-15.5) % Plt Count 212 (150-450) k/uL MPV 7.0 Neutrophils % 69 % Lymphocytes % 17 % Monocytes % 9 % Eosinophils % 2 % Basophils % 1 % Neutrophils # 8.1 H (1.3-7.7) k/uL Lymphocytes # 2.0 (1.0-4.8) k/uL Monocytes # 1.0 (0-1.0) k/uL Eosinophils # 0.3 (0-0.7) k/uL Basophils # 0.1 (0-0.2) k/uL Sodium 140 (137-145) mmol/L Potassium 4.4 (3.5-5.1) mmol/L Chloride 107 (98-107) mmol/L Carbon Dioxide 22 (22-30) mmol/L Anion Gap 11 mmol/L BUN 15 (9-20) mg/dL Creatinine 0.92 (0.66-1.25) mg/dL Est GFR (CKD-EPI)AfAm >90 (>60 ml/min/1.73 sqM) Est GFR (CKD-EPI)NonAf 84 (>60 ml/min/1.73 sqM) Glucose 85 (74-99) mg/dL Calcium 9.2 (8.4-10.2) mg/dL Total Bilirubin 1.3 (0.2-1.3) mg/dL AST 31 (17-59) U/L ALT 39 (4-49) U/L Alkaline Phosphatase 52 (38-126) U/L Total Protein 7.4 (6.3-8.2) g/dL Albumin 3.9 (3.5-5.0) g/dL Amylase 54 (30-110) U/L Disposition Clinical Impression: Infectious parotitis Disposition: HOME SELF-CARE Condition: Good Instructions (If sedation given, give patient instructions): Parotid Duct Obstruction (ED) Prescriptions: Amoxicillin/Potassium Clav [Augmentin 875-125 Tablet] 1 each PO Q12HR #40 tab Ketorolac [Toradol] 10 mg PO Q6HR #15 tab Is patient prescribed a controlled substance at d/c from ED?: No Referrals: Valente Nash DO [Primary Care Provider] - 1-2 days Time of Disposition: 14:01
[2021-11-03 13:05] LABS: Basophils # (A) 0.1 k/uL (0-0.2); Basophils % (A) 1 %; Eosinophils # (A) 0.3 k/uL (0-0.7); Eosinophils % (A) 2 %; HCT 50.9 % (39.0-53.0); HGB 17.6 gm/dL (13.0-17.5); Lymphocytes % (A) 17 %; MCH 31.5 pg (25.0-35.0); MCHC 34.5 g/dL (31.0-37.0); MCV 91.3 fL (80.0-100.0); Monocytes % (A) 9 %; Neutrophils # (A) 8.1 k/uL (1.3-7.7); Neutrophils % (A) 69 %; Platelet Count 212 k/uL (150-450); RBC 5.57 m/uL (4.30-5.90); RDW 12.7 % (11.5-15.5); WBC 11.7 k/uL (3.8-10.6)
[2021-11-03] MEDS ORDERED: AMOXIC-POT CLAV 875-125MG 1 EACH TAB PO STA (14:02)
[2021-11-03] MEDS ORDERED: KETOROLAC 15 MG/ML 1 ML VIAL IVP STA (14:39)
[2021-11-03 14:42] LABS: ALT 39 U/L (4-49); AST 31 U/L (17-59); African American GFR (CKD) >90 (>60 ml/min/1.73 sqM); Albumin 3.9 g/dL (3.5-5.0); Alkaline Phosphatase 52 U/L (38-126); Amylase 54 U/L (30-110); Anion Gap 11 mmol/L; Blood Urea Nitrogen 15 mg/dL (9-20); Calcium 9.2 mg/dL (8.4-10.2); Carbon Dioxide 22 mmol/L (22-30); Chloride 107 mmol/L (98-107); Glucose 85 mg/dL (74-99); Non-African American GFR(CKD) 84 (>60 ml/min/1.73 sqM); Potassium 4.4 mmol/L (3.5-5.1); Sodium 140 mmol/L (137-145); Total Bilirubin 1.3 mg/dL (0.2-1.3); Total Protein 7.4 g/dL (6.3-8.2)
[2021-11-03 15:21] VITALS: BP 133/77; PULSE 92
== END 2021-11-03 15:24 | disposition home or self-care (01) ==
LOC: EC 12:12
DX: B26.9 Mumps without complication (principal)
CPT/HCPCS: 36415; 80053; 82150; 85025; 99283; 96374; J1885

== ENCOUNTER → 2021-12-01 | Outpatient (CLI) | payer MEDICARE ==
[2021-12-01 12:48] LABS: Ionized Calcium 5.2 mg/dL (4.5-5.3)
[2021-12-01 18:42] LABS: Magnesium 2.4 mg/dL (1.5-2.4)
[2021-12-01 21:42] LABS: African American GFR (CKD) >90 (>60 ml/min/1.73 sqM); Blood Urea Nitrogen 18 mg/dL (9-20); Non-African American GFR(CKD) 88 (>60 ml/min/1.73 sqM)
--- NOTE | 2021-12-02 05:26 | CT ---
EXAMINATION TYPE: CT soft tissue neck wo con DATE OF EXAM: 12/01/2021 HISTORY: Sialoadenitis, unspecified and Sialolithiasis COMPARISON: None available CT DLP: 544.40 mGycm. Automated Exposure Control for Dose Reduction was Utilized. TECHNIQUE: CT scan of the neck is performed without IV contrast administration, axial images are obt ained, coronal and sagittal reformatted images are reviewed. FINDINGS: 16mm well-defined nodule is seen within the deep portion of the left parotid gland without definite c alcification or obvious cystic changes, nonspecific. Suspected focal infiltration is seen within the left parotid gland. Underlying parotitis cannot be excluded. Grossly unremarkable right parotid gland . Symmetrical unremarkable submandibular salivary glands. Unremarkable thyroid gland. Unremarkable nasopharynx, oropharynx, hypopharynx, larynx and visualized portion of the trachea and e sophagus. Scattered arterial atherosclerotic calcifications. Scattered subcentimeter bilateral cervic al lymph nodes. No pathologically enlarged lymph nodes in the neck. Mild mucosal thickening of the le ft maxillary sinus. Mild degenerative changes of the cervical spine. IMPRESSION: 16mm left parotid gland nodule as described above, nonspecific. Neoplastic lesion cannot be excluded. Subtle infiltration of the left parotid gland which may suggest parotitis. Recommend clinical correla tion and further ultrasound assessment. If nonconclusive, further PET scan assessment can be consider ed. Other incidental findings as described above.
== END | disposition home or self-care (01) ==
LOC: RADCTMAIN 11:05
PROVIDERS: ATTEND Otolaryngology
DX: K11.8 Other diseases of salivary glands (principal); K11.5 Sialolithiasis
CPT/HCPCS: 70490; 82306; 82330; 82565; 83735; 84443; 84520

== ENCOUNTER 2022-01-11 02:11 | Emergency (ER) | payer MEDICARE ==
[2022-01-11 03:45] VITALS: RESP 19; TEMP 98
[2022-01-11 03:51] LABS: Appearance,Urine Clear (Clear); Bilirubin,Urine Negative (Negative); Blood,Urine Small (Negative); Color,Urine Colorless; Glucose,Urine (UA) Negative (Negative); Ketones,Urine Negative (Negative); Leukocyte Esterase,Urine Negative (Negative); Nitrite,Urine Negative (Negative); Protein,Urine Negative (Negative); RBC,Urine 17 /hpf (0-5); Specific Gravity,Urine 1.008 (1.001-1.035); Urobilinogen,Urine <2.0 mg/dL (<2.0); WBC,Urine <1 /hpf (0-5)
[2022-01-11] MEDS ORDERED: LEVOFLOXACIN 500 MG TAB PO STA (06:06)
[2022-01-11] MEDS ORDERED: PHENAZOPYRIDINE 100 MG TAB PO STA (06:06)
--- NOTE | 2022-01-11 06:08 | ED ---
Male Urogenital HPI - General Chief complaint: Urogenital Stated complaint: Urogenital Time Seen by Provider: 01/11/22 05:55 Source: patient, RN notes reviewed, old records reviewed Mode of arrival: ambulatory - History of Present Illness Initial comments: This is a 71-year-old male the ER today. Patient presents for evaluation regards to severe burning with urination increased frequency increased urgency. No history of renal prior similar urinary issues. Patient states he does occasionally get abdominal infections which he goes on antibiotics for his currently on antibiotics for abdominal infection. Patient is without fever currently. No nausea vomiting or diarrhea. No abdominal pain MD Complaint: dysuria -: days(s) Location: penis Severity: moderate Severity scale (1-10): 5 Quality: burning, sharp Consistency: constant Improves with: none Worsens with: urination new medication Reports: urinary retention, dysuria - Related Data Home Medications Medication Instructions Recorded Confirmed Sulfamethoxazole/Trimethoprim 1 tab PO BID 11/03/21 11/03/21 [Bactrim DS 800-160 mg] Previous Rx's Medication Instructions Recorded Amoxicillin/Potassium Clav 1 each PO Q12HR #40 tab 11/03/21 [Augmentin 875-125 Tablet] Ketorolac [Toradol] 10 mg PO Q6HR #15 tab 11/03/21 Levofloxacin [Levaquin] 500 mg PO DAILY 7 Days #7 tab 01/11/22 Allergies Allergy/AdvReac Type Severity Reaction Status Date / Time Iodinated Contrast Media Allergy IV form Verified 01/11/22 03:46 [Iodinated Contrast Media - causes Oral and] itching-ok with benadryl Review of Systems ROS Statement: Those systems with pertinent positive or pertinent negative responses have been documented in the HPI. ROS Other: All systems not noted in ROS Statement are negative. Past Medical History Additional Past Medical History / Comment(s): HX OF COLON POLYP, HX OF KIDNEY STONES, CURRENT GALLSTONE, CHRONIC BACK PAIN, nodule in parotid gland (waiting cancer results 01/11/22) History of Any Multi-Drug Resistant Organisms: None Reported Past Surgical History: Bowel Resection, Cholecystectomy Additional Past Surgical History / Comment(s): LITHOTRIPSY, bile duct resection Past Anesthesia/Blood Transfusion Reactions: No Reported Reaction Past Psychological History: No Psychological Hx Reported Smoking Status: Never smoker Past Alcohol Use History: None Reported Past Drug Use History: None Reported - Past Family History Sister(s) Family Medical History: Cancer General Exam General appearance: alert, in no apparent distress Head exam: Present: atraumatic, normocephalic, normal inspection Eye exam: Present: normal appearance, PERRL, EOMI. Absent: scleral icterus, conjunctival injection, periorbital swelling ENT exam: Present: normal exam, mucous membranes moist Neck exam: Present: normal inspection. Absent: tenderness, meningismus, lymphadenopathy Respiratory exam: Present: normal lung sounds bilaterally. Absent: respiratory distress, wheezes, rales, rhonchi, stridor Cardiovascular Exam: Present: regular rate, normal rhythm, normal heart sounds. Absent: systolic murmur, diastolic murmur, rubs, gallop, clicks GI/Abdominal exam: Present: soft, normal bowel sounds. Absent: distended, tenderness, guarding, rebound, rigid Extremities exam: Present: normal inspection, full ROM, normal capillary refill. Absent: tenderness, pedal edema, joint swelling, calf tenderness Back exam: Present: normal inspection Neurological exam: Present: alert, oriented X3, CN II-XII intact Psychiatric exam: Present: normal affect, normal mood Skin exam: Present: warm, dry, intact, normal color. Absent: rash Course Vital Signs 01/11/22 01/11/22 03:36 06:30 Temperature 98 F Pulse Rate 90 70 Respiratory 19 Rate Blood Pressure 132/88 129/70 O2 Sat by Pulse 98 97 Oximetry - Reevaluation(s) Reevaluation #1: 01/11/22 Medical record reviewed Reevaluation #2: 01/11/22 Patient informed results and questions are answered Reevaluation #3: 01/11/22 Patient has no change in symptoms here in the ER although agrees with treatment plan Medical Decision Making - Medical Decision Making 71-year-old male to the emergency department for evaluation burning with urination. Patient will have antibiotic changes he is currently on antibiotics for abdominal infection patient is planning can be discharged home - Lab Data Lab Results 01/11/22 Range/Units 03:12 Urine Color Colorless Urine Appearance Clear (Clear) Urine pH 7.0 (5.0-8.0) Ur Specific [place] 1.008 (1.001-1.035) Urine Protein Negative (Negative) Urine Glucose (UA) Negative (Negative) Urine Ketones Negative (Negative) Urine Blood Small H (Negative) Urine Nitrite Negative (Negative) Urine Bilirubin Negative (Negative) Urine Urobilinogen <2.0 (<2.0) mg/dL Ur Leukocyte Esterase Negative (Negative) Urine RBC 17 H (0-5) /hpf Urine WBC <1 (0-5) /hpf Disposition Clinical Impression: UTI (urinary tract infection) Disposition: HOME SELF-CARE Condition: Good Instructions (If sedation given, give patient instructions): Urinary Tract Infection in Men (ED) Prescriptions: Levofloxacin [Levaquin] 500 mg PO DAILY 7 Days #7 tab Is patient prescribed a controlled substance at d/c from ED?: No Referrals: Valente Nash DO [Primary Care Provider] - 1-2 days
[2022-01-11 06:33] VITALS: BP 129/70; PULSE 70
== END 2022-01-11 07:04 | disposition home or self-care (01) ==
LOC: EC 02:11
DX: N39.0 Urinary tract infection, site not specified (principal); Z91.041 Radiographic dye allergy status
CPT/HCPCS: 81001

== ENCOUNTER → 2022-07-18 | Outpatient (CLI) | payer MEDICARE ==
--- NOTE | 2022-07-21 08:59 | MR ---
EXAMINATION TYPE: MR Prostate wo/w con DATE OF EXAM: 07/18/2022 10:11 AM COMPARISON: None. CLINICAL INDICATION:Male, 72 years old with history of R97.20 ELEVATED PROSTATE SPECIFIC ANTIGEN; TECHNIQUE: Multi-planar, multi-sequence imaging of the pelvis is performed prior to and following the uncomplicated administration of bolus intravenous gadolinium. CONTRAST: 11 Gadavist Interpretive Criteria: PI-RADS v2.1 SERUM PSA: 9.4 on 06/20/2022. SURGICAL PATHOLOGY: No data available. FINDINGS: Prostatic dimensions: 6.8 x 7.6 x 5.8 cm. Ellipsoid Volume:156.95 (PSA density=0.06 ng/mL/mL) CENTRAL GLAND (Central and Transition Zones/CZ+TZ): Multiple bilateral, heterogenous appearing hypertrophic stromal nodules, without suspicious lesion. M edian lobe hypertrophy with protrusion into the base of the bladder. (PI-RADS 2) PERIPHERAL ZONE (PZ): No evidence of masslike abnormality, or localized perfusional hypervascularity, to further suggest a focus of clinically significant prostate cancer. (PI-RADS 2) SEMINAL VESICLES (SV): Symmetric and unremarkable. PERIPROSTATIC TISSUES: Unremarkable. LYMPH NODES: * Left common iliac chain prominent lymph nodes measuring 9 mm and 8 mm in short axis. * Right internal iliac lymph node measuring 9 mm in short axis * Right vesicular space of Retzius measuring 8 mm in short axis. * Aortic bifurcation/presacral 4 mm short axis lymph node. REMAINING PELVIS: Bladder wall is within normal limits given distention. There is a high T2/low T1 signal lesion adjacent to the rectum measuring 3.1 x 1.8 cm. Bilateral fat-containing inguinal hernias. OSSEOUS STRUCTURES: No suspicious osseous abnormality. IMPRESSION: 1. No specific features for high-risk prostate cancer. Maximum PI-RADS score: 2. 2. 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 Additional scattered pelvic lymph nodes are present which are prominent and radha picious for metastatic disease. Further workup recommended. 3. Substantial BPH, estimated gland volume 156.95mL.
== END | disposition home or self-care (01) ==
LOC: RADMRIMAIN 09:04
PROVIDERS: ATTEND Urology
DX: N40.0 Benign prostatic hyperplasia without lower urinary tract symptoms (principal); R97.20 Elevated prostate specific antigen [PSA]
CPT/HCPCS: 72197; A9585

== ENCOUNTER 2022-08-08 09:05 | Day surgery (SDC) | payer MEDICARE ==
[2022-08-07 10:37] VITALS: BMI 35.4
[~2022-08-08 09:05] MED LIST changes: +LIDOCAINE 1% (10MG/ML) FOR IV START INTRADERMA PRN; -LIDOCAINE 1% 20 ML VIAL (10MG/ML) FOR IV START INTRADERMA PRN
[2022-08-08 09:42] VITALS: TEMP 97.5
[2022-08-08] MEDS ORDERED: ONDANSETRON 4 MG/2 ML VIAL ONE (10:02)
[2022-08-08] MEDS ORDERED: ONDANSETRON 4 MG/2 ML VIAL IVP ONE (10:04)
[2022-08-08] MEDS ORDERED: PROPOFOL 10 MG/ML 20 ML VIAL IV ONE (10:10)
--- NOTE | 2022-08-08 10:31 | P.GSHP ---
History of Present Illness H&P Date: 08/08/22 Chief Complaint: Rectal mass 72-year-old male here today for colonoscopy. Last colonoscopy 6 years ago. Patient with history of previous colon resection for benign polyp. Recent MRI of the prostate shows a suspicious abnormality in the rectum. Patient without complaints. 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, recurrent inflammatory reaction of swollen lymph nodes, headache, chills and pain ongoing since 2018 happens every 4-8 weeks History of Any Multi-Drug Resistant Organisms: None Reported Past Surgical History: Bowel Resection, Cholecystectomy Additional Past Surgical History / Comment(s): LITHOTRIPSY, bile duct resection due to gallbladder precancerous, ENT surgical removal of blocked salivary stone Past Anesthesia/Blood Transfusion Reactions: No Reported Reaction Smoking Status: Never smoker - Past Family History Sister(s) Family Medical History: Cancer Additional Family Medical History / Comment(s): pancreatic Medications and Allergies Home Medications Medication Instructions Recorded Confirmed Type Cholecalciferol [Vitamin D3 (125 125 mcg PO DAILY 08/07/22 08/07/22 History Mcg = 5000 Iu)] Ibuprofen [Motrin] 200 mg PO Q6HR PRN 08/07/22 08/07/22 History Allergies Allergy/AdvReac Type Severity Reaction Status Date / Time Iodinated Contrast Media Allergy IV form Verified 08/08/22 09:37 [Iodinated Contrast Media - causes Oral and] itching-ok with benadryl Surgical - Exam Vital Signs Temp Pulse Resp BP Pulse Ox 97.5 F L 75 16 163/84 93 L 08/08/22 09:40 08/08/22 09:40 08/08/22 09:40 08/08/22 09:40 08/08/22 09:40 Physical exam: General: Well-developed, well-nourished HEENT: Normocephalic, sclerae nonicteric Abdomen: Nontender, nondistended Extremities: No edema Neuro: Alert and oriented Assessment and Plan (1) Rectal mass Narrative/Plan: 72-year-old male with recent findings of rectal mass by MRI. We'll proceed with colonoscopy Current Visit: Yes Status: Acute Code(s): K62.89 - OTHER SPECIFIED DISEASES OF ANUS AND RECTUM SNOMED Code(s): 985026530
--- NOTE | 2022-08-08 10:33 | P.PCN ---
Date of Procedure: 08/08/22 Procedure(s) Performed: PREOPERATIVE DIAGNOSIS: Rectal mass by MRI POSTOPERATIVE DIAGNOSIS: Hepatic flexure polyp, diverticulosis, previous low colorectal anastomosis, no evidence of rectal mass PROCEDURE: Colonoscopy with snare polypectomy ANESTHESIA: MAC SURGEON: Shamar Magaña M.D. SPECIMENS: Hepatic flexure polyp ENDOSCOPIC PROCEDURE: The patient was placed on the endoscopy table in the left decubitus position. The Olympus colonoscope was inserted into the anus and passed under direct visualization to the base of the cecum. The appendiceal orifice was visualized. From that point the scope was slowly withdrawn inspecting all surfaces carefully. There were no neoplastic inflammatory or polypoid lesions throughout the cecum or ascending colon. At the hepatic flexure a small polyp was seen and removed using snare with cautery technique. The remainder of the transverse descending sigmoid and rectum appeared normal. The patient had a low-lying colorectal anastomosis. There was no visible mass seen at or below the anastomotic site. The patient had small hemorrhoids. The patient did have mild diverticulosis. Digital rectal examination was normal. The patient was taken to the recovery room in stable condition per anesthesia guidelines. RECOMMENDATIONS: Resume diet. Continue urologic workup. Repeat colonoscopy 5 years.
[2022-08-08 10:54] VITALS: BP 152/80; PULSE 69; RESP 16
== END 2022-08-08 11:22 | disposition home or self-care (01) ==
LOC: ORWHC2ENDO 09:05
PROVIDERS: ATTEND Surgery
DX: K63.5 Polyp of colon (principal); K57.30 Diverticulosis of large intestine without perforation or abscess without bleeding; Z90.49 Acquired absence of other specified parts of digestive tract; Z87.442 Personal history of urinary calculi; Z87.19 Personal history of other diseases of the digestive system; Z79.1 Long term (current) use of non-steroidal anti-inflammatories (NSAID); Z98.890 Other specified postprocedural states; Z79.899 Other long term (current) drug therapy; Z88.8 Allergy status to other drugs, medicaments and biological substances
CPT/HCPCS: 88305; 45385; J2405; J2704

== ENCOUNTER 2022-12-25 09:33 | Emergency (ER) | payer MEDICARE ==
--- NOTE | 2022-12-25 10:30 | ED ---
General Adult HPI - General Chief complaint: Skin/Abscess/Foreign Body Stated complaint: Insect Bite Right Leg Time Seen by Provider: 12/25/22 10:07 Source: patient, RN notes reviewed Mode of arrival: ambulatory Limitations: no limitations - History of Present Illness Initial comments: 72-year-old male with no significant past medical history presents the emergency department with a chief complaint of a bug bite. Patient reports she reports mowing the grass on Sunday12/22/2022. He reports having a small lesion on the edition. He reports that has progressively gotten worse. He believes he may have been bitten by a bug. He reports the sensation as a burning. He has not taken anything for his symptoms. He denies any fevers or chills. He denies any known trauma or injury. Denies history of diabetes. - Related Data Home Medications Medication Instructions Recorded Confirmed Cholecalciferol [Vitamin D3 (125 125 mcg PO DAILY 08/07/22 08/07/22 Mcg = 5000 Iu)] Ibuprofen [Motrin] 200 mg PO Q6HR PRN 08/07/22 08/07/22 Previous Rx's Medication Instructions Recorded Cephalexin [Keflex] 500 mg PO Q6HR #40 cap 12/25/22 Clindamycin [Cleocin] 150 mg PO Q6H #40 capsule 12/25/22 Allergies Allergy/AdvReac Type Severity Reaction Status Date / Time Iodinated Contrast Media Allergy IV form Verified 12/25/22 09:40 [Iodinated Contrast Media - causes Oral and] itching-ok with benadryl Review of Systems ROS Statement: Those systems with pertinent positive or pertinent negative responses have been documented in the HPI. ROS Other: All systems not noted in ROS Statement are negative. 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, recurrent inflammatory reaction of swollen lymph nodes, headache, chills and pain ongoing since 2018 happens every 4-8 weeks History of Any Multi-Drug Resistant Organisms: None Reported Past Surgical History: Bowel Resection, Cholecystectomy Additional Past Surgical History / Comment(s): LITHOTRIPSY, bile duct resection due to gallbladder precancerous, ENT surgical removal of blocked salivary stone Past Anesthesia/Blood Transfusion Reactions: No Reported Reaction Past Psychological History: No Psychological Hx Reported Smoking Status: Never smoker Past Alcohol Use History: None Reported Past Drug Use History: None Reported - Past Family History Sister(s) Family Medical History: Cancer Additional Family Medical History / Comment(s): pancreatic General Exam - General Exam Comments Initial Comments: General: Alert, in no acute distress Head: atraumatic normocephalic. Eyes PERRL, EOMI intact, mucous membranes moist Respiratory: Lungs clear to auscultation bilaterally Cardiovascular: Rate regular rate and rhythm Abdominal: Soft without guarding or rebound Extremities: Normal inspection with full range of motion and normal capillary refill, small pustular lesion to distal west. No active bleeding or drainage. It is warm. No crepitus noted. Full range of motion. Distal NBI. 2+ PT/DP pulses. Neuroogic: alert and oriented 3, CN II-XII intact, able to ambulate with steady gait Skin: warm dry and intact with normal color Limitations: no limitations Course Vital Signs 12/25/22 12/25/22 09:37 12:06 Temperature 97.8 F 97.9 F Pulse Rate 81 75 Respiratory 18 16 Rate Blood Pressure 142/82 154/78 O2 Sat by Pulse 96 96 Oximetry Medical Decision Making - Medical Decision Making Was pt. sent in by a medical professional or institution (GEORGI Mobley, SURGICAL GARMENT FITTER, urgent care, hospital, or [facility]...) When possible be specific @ -[No] Did you speak to anyone other than the patient for history (EMS, parent, family, police, friend...)? What history was obtained from this source @ -[No] Did you review nursing and triage notes (agree or disagree)? Why? @ -[I reviewed and agree with nursing and triage notes] Were old charts reviewed (outside hosp., previous admission, EMS record, old EKG, old radiological studies, urgent care reports/EKG's, [facility] records)? Report findings @ -[No old charts were reviewed] Differential Diagnosis (chest pain, altered mental status, abdominal pain women, abdominal pain men, vaginal bleeding, weakness, fever, dyspnea, syncope, headache, dizziness, GI bleed, back pain, seizure, CVA, palpatations, mental health, musculoskeletal)? @ -[not applicable] EKG interpreted by me (3pts min.). @ -[As above] X-rays interpreted by me (1pt min.). @ -Right tibia-fibula x-ray negative for any evidence of soft tissue edema or osteomyelitis CT interpreted by me (1pt min.). @ -[None done] U/S interpreted by me (1pt. min.). @ -[None done] What testing was considered but not performed or refused? (CT, X-rays, U/S, labs)? Why? @ -[None] What meds were considered but not given or refused? Why? @ -[None] Did you discuss the management of the patient with other professionals (professionals i.e. , PA, SURGICAL GARMENT FITTER, lab, RT, psych nurse, social sciences department chair, intellectual property lawyer, teacher, chairman and chief executive officer, shoe parts caser)? Give summary @ -[No] Was smoking cessation discussed for >3mins.? @ -[No] Was critical care preformed (if so, how long)? @ -[No] Were there social determinants of health that impacted care today? How? (Homelessness, low income, unemployed, alcoholism, drug addiction, transportation, low edu. Level, literacy, decrease access to med. care, [facility], rehab)? @ -[No] Was there de-escalation of care discussed even if they declined (Discuss DNR or withdrawal of care, Hospice)? DNR status @ -[No] What co-morbidities impacted this encounter? (DM, HTN, Smoking, COPD, CAD, Cancer, CVA, ARF, Chemo, Hep., AIDS, mental health diagnosis, sleep apnea, morbid obesity)? @ -[None] Was patient admitted / discharged? Hospital course, mention meds given and ro shanti, prescriptions, significant lab abnormalities, going to OR and other pertinent info. @ --Discharged. This is a 72-year-old male who presents to the emergency department with rash, Patient had a thorough history and physical exam performed while in the ED. Physical exam is essentially unremarkable heart rate regular rate and rhythm, lungs clear to auscultation bilaterally, abdomen soft, and non-tender. Patient had lab work and imaging performed which were esse ntially unremarkable.. I discussed results in detail with the patient's who verbalized understanding and all questions were addressed. He was given 1 g of ceftriaxone here. He was given a prescription for Keflex and clindamycin. Return precautions were discussed at length. The patient was discharged in stable condition. Discussed with CRISTOPHER Oconnor who agrees with plan of care Undiagnosed new problem with uncertain prognosis? @ -[No] Drug Therapy requiring intensive monitoring for toxicity (Heparin, Nitro, Insulin, Cardizem)? @ -[No] Were any procedures done? @ -[No] Diagnosis/symptom? @ -Rash Vs. Cellulitis Acute, or Chronic, or Acute on Chronic? @ -Acute Uncomplicated (without systemic symptoms) or Complicated (systemic symptoms)? @ -Uncomplicated Side effects of treatment? @ -[No] Exacerbation, Progression, or Severe Exacerbation? @ -[No] Poses a threat to life or bodily function? How? (Chest pain, [place], [place], pneumonia, PE, COPD, DKA, ARF, appy, cholecystitis, CVA, Diverticulitis, Homicidal, Suicidal, threat to staff... and all critical care pts) @ -low likelihood - Lab Data Result diagrams: 12/25/22 10:44 12/25/22 10:44 Lab Results 12/25/22 12/25/22 Range/Units 10:44 10:44 WBC 6.4 (3.8-10.6) k/uL RBC 5.57 (4.30-5.90) m/uL Hgb 17.0 (13.0-17.5) gm/dL Hct 50.7 (39.0-53.0) % MCV 90.9 (80.0-100.0) fL MCH 30.6 (25.0-35.0) pg MCHC 33.6 (31.0-37.0) g/dL RDW 12.8 (11.5-15.5) % Plt Count 169 (150-450) k/uL MPV 6.8 Neutrophils % 67 % Lymphocytes % 21 % Monocytes % 6 % Eosinophils % 2 % Basophils % 0 % Neutrophils # 4.3 (1.3-7.7) k/uL Lymphocytes # 1.4 (1.0-4.8) k/uL Monocytes # 0.4 (0-1.0) k/uL Eosinophils # 0.2 (0-0.7) k/uL Basophils # 0.0 (0-0.2) k/uL Sodium 139 (137-145) mmol/L Potassium 4.0 (3.5-5.1) mmol/L Chloride 107 (98-107) mmol/L Carbon Dioxide 22 (22-30) mmol/L Anion Gap 10 mmol/L BUN 18 (9-20) mg/dL Creatinine 0.80 (0.66-1.25) mg/dL Est GFR (CKD-EPI)AfAm >90 (>60 ml/min/1.73 sqM) Est GFR (CKD-EPI)NonAf >90 (>60 ml/min/1.73 sqM) Glucose 151 H (74-99) mg/dL Calcium 9.0 (8.4-10.2) mg/dL Total Bilirubin 1.3 (0.2-1.3) mg/dL AST 28 (17-59) U/L ALT 29 (4-49) U/L Alkaline Phosphatase 51 (38-126) U/L Total Protein 6.9 (6.3-8.2) g/dL Albumin 3.8 (3.5-5.0) g/dL Disposition Clinical Impression: Rash Disposition: HOME SELF-CARE Condition: Stable Instructions (If sedation given, give patient instructions): Dermatitis (ED) Additional Instructions: Please take the antibiotics as prescribed. Please watch for any worsening redness or edema or fevers develop Please return to the nearest emergency department if symptoms worsen or persist Prescriptions: Clindamycin [Cleocin] 150 mg PO Q6H #40 capsule Cephalexin [Keflex] 500 mg PO Q6HR #40 cap Is patient prescribed a controlled substance at d/c from ED?: No Referrals: Valente Nash DO [Primary Care Provider] - 1-2 days Time of Disposition: 11:37
[2022-12-25 10:51] LABS: Basophils % (A) 0 %; Eosinophils # (A) 0.2 k/uL (0-0.7); Eosinophils % (A) 2 %; HCT 50.7 % (39.0-53.0); Lymphocytes # (A) 1.4 k/uL (1.0-4.8); Lymphocytes % (A) 21 %; MCH 30.6 pg (25.0-35.0); MCHC 33.6 g/dL (31.0-37.0); MCV 90.9 fL (80.0-100.0); Mean Platelet Volume 6.8; Monocytes # (A) 0.4 k/uL (0-1.0); Monocytes % (A) 6 %; Neutrophils # (A) 4.3 k/uL (1.3-7.7); Neutrophils % (A) 67 %; Platelet Count 169 k/uL (150-450); RBC 5.57 m/uL (4.30-5.90); RDW 12.8 % (11.5-15.5); WBC 6.4 k/uL (3.8-10.6)
--- NOTE | 2022-12-25 11:28 | XR ---
EXAMINATION TYPE: XR tibia fibula RT DATE OF EXAM: 12/25/2022 11:23 AM INDICATION: Patient age:Male; 72 years old; Reason for study: R west abscess; [facility]. COMPARISON: None TECHNIQUE: The right tibia/fibula was examined in AP and lateral projections. FINDINGS: No evidence of any acute osseous pathology, joint dislocation, or soft tissue swelling is n oted. No osseous erosions. No definitive subcutaneous gas. IMPRESSION: No evidence of acute fracture.
[2022-12-25 11:34] LABS: ALT 29 U/L (4-49); AST 28 U/L (17-59); African American GFR (CKD) >90 (>60 ml/min/1.73 sqM); Albumin 3.8 g/dL (3.5-5.0); Alkaline Phosphatase 51 U/L (38-126); Anion Gap 10 mmol/L; Blood Urea Nitrogen 18 mg/dL (9-20); Carbon Dioxide 22 mmol/L (22-30); Chloride 107 mmol/L (98-107); Glucose 151 mg/dL (74-99); Non-African American GFR(CKD) >90 (>60 ml/min/1.73 sqM); Sodium 139 mmol/L (137-145); Total Bilirubin 1.3 mg/dL (0.2-1.3); Total Protein 6.9 g/dL (6.3-8.2)
[2022-12-25] MEDS ORDERED: cefTRIAXone 1,000 MG VIAL (IM USE) IM STA (11:54)
[2022-12-25 12:07] VITALS: BP 154/78; PULSE 75; RESP 16; TEMP 97.9
== END 2022-12-25 12:22 | disposition home or self-care (01) ==
LOC: EC 09:33
DX: R21 Rash and other nonspecific skin eruption (principal); Z91.041 Radiographic dye allergy status; W57.XXXA Bitten or stung by nonvenomous insect and other nonvenomous arthropods, initial encounter
CPT/HCPCS: 36415; 80053; 85025; 73590; 99283; 96372; J0696

== ENCOUNTER 2023-03-29 20:37 | Emergency (ER) | payer MEDICARE ==
[2023-03-29 21:28] LABS: Appearance,Urine Clear (Clear); Bilirubin,Urine Negative (Negative); Blood,Urine Negative (Negative); Color,Urine Light Yellow; Glucose,Urine (UA) Negative (Negative); Ketones,Urine Negative (Negative); Leukocyte Esterase,Urine Negative (Negative); Nitrite,Urine Negative (Negative); Protein,Urine Negative (Negative); Specific Gravity,Urine 1.017 (1.001-1.035); Urobilinogen,Urine <2.0 mg/dL (<2.0)
[2023-03-29] MEDS ORDERED: ACETAMINOPHEN TAB 500 MG TAB PO STA (22:36)
[2023-03-29 23:57] LABS: ALT 27 U/L (4-49); AST 26 U/L (17-59); African American GFR (CKD) >90 (>60 ml/min/1.73 sqM); Albumin 3.9 g/dL (3.5-5.0); Alkaline Phosphatase 45 U/L (38-126); Anion Gap 13 mmol/L; Blood Urea Nitrogen 19 mg/dL (9-20); Calcium 9.6 mg/dL (8.4-10.2); Carbon Dioxide 21 mmol/L (22-30); Chloride 103 mmol/L (98-107); Glucose 94 mg/dL (74-99); Non-African American GFR(CKD) 89 (>60 ml/min/1.73 sqM); Potassium 4.1 mmol/L (3.5-5.1); Sodium 137 mmol/L (137-145); Total Bilirubin 1.7 mg/dL (0.2-1.3); Total Protein 7.1 g/dL (6.3-8.2)
--- NOTE | 2023-03-30 00:13 | ED ---
Male Urogenital HPI - General Source: patient Mode of arrival: ambulatory Limitations: no limitations <Ann Cope - Last Filed: 03/30/23 00:10> <Bud Yanez - Last Filed: 03/30/23 01:29> - General Chief complaint: Urogenital Stated complaint: UTI Time Seen by Provider: 03/29/23 22:09 - History of Present Illness Initial comments: Patient is a 72-year-old male who presents the emergency department with urinary issues. Patient reports intermittent pain with urination and trouble urinating since he had his gallbladder removed a couple years ago. States he is "sick of it and wants answers" which brought him to the emergency department. He denies any change or worsening to his pain. Denies penile discharge, testicular pain. Denies fever, chills, nausea, vomiting. (Ann Cope) - Related Data Home Medications Medication Instructions Recorded Confirmed Cholecalciferol [Vitamin D3 (125 125 mcg PO DAILY 08/07/22 08/07/22 Mcg = 5000 Iu)] Ibuprofen [Motrin] 200 mg PO Q6HR PRN 08/07/22 08/07/22 Previous Rx's Medication Instructions Recorded Cephalexin [Keflex] 500 mg PO Q6HR #40 cap 12/25/22 Clindamycin [Cleocin] 150 mg PO Q6H #40 capsule 12/25/22 Allergies Allergy/AdvReac Type Severity Reaction Status Date / Time Iodinated Contrast Media Allergy IV form Verified 12/25/22 09:40 [Iodinated Contrast Media - causes Oral and] itching-ok with benadryl Review of Systems ROS Other: All systems not noted in ROS Statement are negative. <Ann Cope - Last Filed: 03/30/23 00:10> ROS Other: All systems not noted in ROS Statement are negative. <Bud Yanez - Last Filed: 03/30/23 01:29> ROS Statement: Those systems with pertinent positive or pertinent negative responses have been documented in the HPI. 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, recurrent inflammatory reaction of swollen lymph nodes, headache, chills and pain ongoing since 2018 happens every 4-8 weeks History of Any Multi-Drug Resistant Organisms: None Reported Past Surgical History: Bowel Resection, Cholecystectomy Additional Past Surgical History / Comment(s): LITHOTRIPSY, bile duct resection due to gallbladder precancerous, ENT surgical removal of blocked salivary stone Past Anesthesia/Blood Transfusion Reactions: No Reported Reaction Past Psychological History: No Psychological Hx Reported Smoking Status: Never smoker Past Alcohol Use History: None Reported Past Drug Use History: None Reported - Past Family History Sister(s) Family Medical History: Cancer Additional Family Medical History / Comment(s): pancreatic <Ann Cope - Last Filed: 03/30/23 00:10> General Exam Limitations: no limitations General appearance: alert Respiratory exam: Present: normal lung sounds bilaterally. Absent: respiratory distress, wheezes, rales, rhonchi, stridor Cardiovascular Exam: Present: regular rate, normal rhythm, normal heart sounds. Absent: systolic murmur, diastolic murmur, rubs, gallop, clicks GI/Abdominal exam: Present: soft, normal bowel sounds. Absent: distended, tenderness, guarding, rebound, rigid Back exam: Absent: CVA tenderness (R), CVA tenderness (L) Neurological exam: Present: alert Psychiatric exam: Present: normal affect, normal mood Skin exam: Present: warm, dry, intact, normal color. Absent: rash <Ann Cope - Last Filed: 03/30/23 00:10> Course Vital Signs 03/29/23 03/29/23 20:59 22:49 Temperature 99 F 98.4 F Pulse Rate 90 87 Respiratory 18 20 Rate Blood Pressure 130/89 108/96 O2 Sat by Pulse 96 96 Oximetry Medical Decision Making - Lab Data Result diagrams: 03/29/23 22:51 03/29/23 22:51 <Ann Cope - Last Filed: 03/30/23 00:10> - Lab Data Result diagrams: 03/29/23 23:58 03/29/23 22:51 <Bud Yanez - Last Filed: 03/30/23 01:29> - Medical Decision Making Was pt. sent in by a medical professional or institution (, PA, BUS BOY, urgent care, hospital, or retirement...) When possible be specific @ -[No] Did you speak to anyone other than the patient for history (EMS, parent, family, police, friend...)? What history was obtained from this source @ -[No] Did you review nursing and triage notes (agree or disagree)? Why? @ -[I reviewed and agree with nursing and triage notes] Were old charts reviewed (outside hosp., previous admission, EMS record, old EKG, old radiological studies, urgent care reports/EKG's, retirement records)? Report findings @ -[No old charts were reviewed] Differential Diagnosis (chest pain, altered mental status, abdominal pain women, abdominal pain men, vaginal bleeding, weakness, fever, dyspnea, syncope, heada amando, dizziness, GI bleed, back pain, seizure, CVA, palpatations, mental health)? @ -BPH, UTI, kidney stone, kidney infection, ABI. This list is not meant to be on all inclusive EKG interpreted by me (3pts min.). @ -[As above] X-rays interpreted by me (1pt min.). @ -[None done] CT interpreted by me (1pt min.). @ -[None done] U/S interpreted by me (1pt. min.). @ -[None done] What testing was considered but not performed or refused? (CT, X-rays, U/S, labs)? Why? @ -[None] What meds were considered but not given or refused? Why? @ -[None] Did you discuss the management of the patient with other professionals (professionals i.e. , PA, BUS BOY, lab, RT, psych nurse, social director, rivet spinner, teacher, data officer, major case detective)? Give summary @ -[No] Was smoking cessation discussed for >3mins.? @ -[No] Was critical care preformed (if so, how long)? @ -[No] Were there social determinants of health that impacted care today? How? (Homelessness, low income, unemployed, alcoholism, drug addiction, transportation, low edu. Level, literacy, decrease access to med. care, snf, rehab)? @ -[No] Was there de-escalation of care discussed even if they declined (Discuss DNR or withdrawal of care, Hospice)? DNR status @ -[No] What co-morbidities impacted this encounter? (DM, HTN, Smoking, COPD, CAD, Cancer, CVA, ARF, Chemo, Hep., AIDS, mental health diagnosis, sleep apnea, morbid obesity)? @ -[None] Was patient admitted / discharged? Hospital course, mention meds given and route, prescriptions, significant lab abnormalities, going to OR and other pertinent info. @ -[hospital course] Undiagnosed new problem with uncertain prognosis? @ -[No] Drug Therapy requiring intensive monitoring for toxicity (Heparin, Nitro, Insulin, Cardizem)? @ -[No] Were any procedures done? @ -[No] Diagnosis/symptom? @ -[default] Acute, or Chronic, or Acute on Chronic? @ -[default] Uncomplicated (without systemic symptoms) or Complicated (systemic symptoms)? @ -[default] Side effects of treatment? @ -[No] Exacerbation, Progression, or Severe Exacerbation? @ -[No] Poses a threat to life or bodily function? How? (Chest pain, [place], [place], pneumonia, PE, COPD, DKA, ARF, appy, cholecystitis, CVA, Diverticulitis, Homicidal, Suicidal, threat to staff... and all critical care pts) @ -[No] (Ann Cope) Patient signed out to me by Ann LAUREANO. She presenting with 5 year history of intermittent difficulty starting his stream and pain with urination. Pre and post void residual here show no retention. Laboraotry studies including u rinalysis largely unremarkable. Patient will be discharged home and advised to follow up with PCP/urology. Discussed return precautions with patient verbalizes agreement. (Bud Yanez) - Lab Data Lab Results 03/29/23 03/29/23 03/29/23 Range/Units 21:14 22:51 22:51 WBC (3.8-10.6) k/uL RBC BUS BOY Hgb BUS BOY Hct BUS BOY MCV BUS BOY MCH BUS BOY MCHC BUS BOY RDW BUS BOY Plt Count (150-450) k/uL MPV BUS BOY Neutrophils % % Lymphocytes % % Monocytes % % Eosinophils % % Basophils % % Neutrophils # (1.3-7.7) k/uL Lymphocytes # (1.0-4.8) k/uL Monocytes # (0-1.0) k/uL Eosinophils # (0-0.7) k/uL Basophils # (0-0.2) k/uL Sodium 137 (137-145) mmol/L Potassium 4.1 (3.5-5.1) mmol/L Chloride 103 (98-107) mmol/L Carbon Dioxide 21 L (22-30) mmol/L Anion Gap 13 mmol/L BUN 19 (9-20) mg/dL Creatinine 0.81 (0.66-1.25) mg/dL Est GFR (CKD-EPI)AfAm >90 (>60 ml/min/1.73 sqM) Est GFR (CKD-EPI)NonAf 89 (>60 ml/min/1.73 sqM) Glucose 94 (74-99) mg/dL Calcium 9.6 (8.4-10.2) mg/dL Total Bilirubin 1.7 H (0.2-1.3) mg/dL AST 26 (17-59) U/L ALT 27 (4-49) U/L Alkaline Phosphatase 45 (38-126) U/L Total Protein 7.1 (6.3-8.2) g/dL Albumin 3.9 (3.5-5.0) g/dL Urine Color Light Yellow Urine Appearance Clear (Clear) Urine pH 6.0 (5.0-8.0) Ur Specific Lawrence 1.017 (1.001-1.035) Urine Protein Negative (Negative) Urine Glucose (UA) Negative (Negative) Urine Ketones Negative (Negative) Urine Blood Negative (Negative) Urine Nitrite Negative (Negative) Urine Bilirubin Negative (Negative) Urine Urobilinogen <2.0 (<2.0) mg/dL Ur Leukocyte Esterase Negative (Negative) 03/29/23 Range/Units 23:58 WBC 11.8 H (3.8-10.6) k/uL RBC 5.33 Hgb 16.2 Hct 48.3 MCV 90.5 MCH 30.4 MCHC 33.6 RDW 13.2 Plt Count 157 (150-450) k/uL MPV 7.6 Neutrophils % 75 % Lymphocytes % 15 % Monocytes % 6 % Eosinophils % 1 % Basophils % 0 % Neutrophils # 8.9 H (1.3-7.7) k/uL Lymphocytes # 1.8 (1.0-4.8) k/uL Monocytes # 0.8 (0-1.0) k/uL Eosinophils # 0.1 (0-0.7) k/uL Basophils # 0.0 (0-0.2) k/uL Sodium (137-145) mmol/L Potassium (3.5-5.1) mmol/L Chloride (98-107) mmol/L Carbon Dioxide (22-30) mmol/L Anion Gap mmol/L BUN (9-20) mg/dL Creatinine (0.66-1.25) mg/dL Est GFR (CKD-EPI)AfAm (>60 ml/min/1.73 sqM) Est GFR (CKD-EPI)NonAf (>60 ml/min/1.73 sqM) Glucose (74-99) mg/dL Calcium (8.4-10.2) mg/dL Total Bilirubin (0.2-1.3) mg/dL AST (17-59) U/L ALT (4-49) U/L Alkaline Phosphatase (38-126) U/L Total Protein (6.3-8.2) g/dL Albumin (3.5-5.0) g/dL Urine Color Urine Appearance (Clear) Urine pH (5.0-8.0) Ur Specific [place] (1.001-1.035) Urine Protein (Negative) Urine Glucose (UA) (Negative) Urine Ketones (Negative) Urine Blood (Negative) Urine Nitrite (Negative) Urine Bilirubin (Negative) Urine Urobilinogen (<2.0) mg/dL Ur Leukocyte Esterase (Negative) Disposition <Ann Cope - Last Filed: 03/30/23 00:10> Is patient prescribed a controlled substance at d/c from ED?: No Time of Disposition: 01:29 <Bud Yanez - Last Filed: 03/30/23 01:29> Clinical Impression: Dysuria Disposition: HOME SELF-CARE Condition: Good Instructions (If sedation given, give patient instructions): Dysuria (ED) Additional Instructions: Please return to the Emergency Department if symptoms worsen or any other concerns. Referrals: Valente Nash DO [Primary Care Provider] - 1-2 days
[2023-03-30 00:14] LABS: Basophils % (A) 0 %; Eosinophils # (A) 0.1 k/uL (0-0.7); Eosinophils % (A) 1 %; HCT 48.3 % (39.0-53.0); HGB 16.2 gm/dL (13.0-17.5); Lymphocytes # (A) 1.8 k/uL (1.0-4.8); Lymphocytes % (A) 15 %; MCH 30.4 pg (25.0-35.0); MCHC 33.6 g/dL (31.0-37.0); MCV 90.5 fL (80.0-100.0); Mean Platelet Volume 7.6; Monocytes # (A) 0.8 k/uL (0-1.0); Monocytes % (A) 6 %; Neutrophils # (A) 8.9 k/uL (1.3-7.7); Neutrophils % (A) 75 %; Platelet Count 157 k/uL (150-450); RBC 5.33 m/uL (4.30-5.90); RDW 13.2 % (11.5-15.5); WBC 11.8 k/uL (3.8-10.6)
[2023-03-30 02:00] VITALS: BP 133/80; PULSE 79; RESP 18; TEMP 97.9
== END 2023-03-30 02:00 | disposition home or self-care (01) ==
LOC: EC 20:37
DX: R30.0 Dysuria (principal); Z90.49 Acquired absence of other specified parts of digestive tract; Z91.041 Radiographic dye allergy status
CPT/HCPCS: 36415; 51798; 80053; 81003; 85025; 99284

== ENCOUNTER → 2024-06-03 | Outpatient (CLI) | payer MEDICARE ==
--- NOTE | 2024-06-03 21:16 | XR ---
EXAMINATION TYPE: XR chest 2V DATE OF EXAM: 06/03/2024 4:21 PM COMPARISON: CT 07/14/2023, plain film 11/09/2020 CLINICAL INDICATION: Male, 73 years old with history of R05.9, R09.89; TECHNIQUE: XR chest 2V Frontal and lateral views of the chest. FINDINGS: Lungs/Pleura: There is no evidence of pleural effusion, focal consolidation, or pneumothorax. Pulmonary vascularity: Unremarkable. Heart/mediastinum: Similar prominence of the right heart border dating back to multiple priors. Cardi omediastinal silhouette is unremarkable. Musculoskeletal: No acute osseous pathology. IMPRESSION: No acute cardiopulmonary disease/process. [facility], , 06/03/2024 9:14 PM
== END | disposition home or self-care (01) ==
LOC: RADXRMAIN 15:38
PROVIDERS: ATTEND Family Medicine
DX: R09.89 Other specified symptoms and signs involving the circulatory and respiratory systems (principal); R05.9 Cough, unspecified
CPT/HCPCS: 71046

== ENCOUNTER → 2024-10-24 | Outpatient (CLI) | payer MEDICARE ==
[2024-10-24 10:36] LABS: African American GFR (CKD) >90 (>60 ml/min/1.73 sqM); Blood Urea Nitrogen 19 mg/dL (9-20); Non-African American GFR(CKD) >90 (>60 ml/min/1.73 sqM)
--- NOTE | 2024-10-24 12:23 | CT ---
EXAMINATION TYPE: CT soft tissue neck w con DATE OF EXAM: 10/24/2024 COMPARISON: CT neck without contrast December 01, 2021 CLINICAL INDICATION: Male, 74 years old with history of R22.1 LOCALIZED SWELLING, MASS AND LUMP, NECK , LT parotid gland swelling TECHNIQUE: CT scan of the neck is performed with IV Contrast, patient injected with 100 mL of Isovue 300, axial images are obtained, coronal and sagittal reformatted images are reviewed. CT DLP: 644 mGycm. Automated Exposure Control for Dose Reduction was Utilized. FINDINGS: Airway: No gross abnormality seen. Parotid/submandibular glands: Parotid glands are symmetric and measure upper limits of normal in size bilaterally. There are several under 1.0 cm oval soft tissue lesions likely reflecting intraparotid lymph nodes that are more prominent versus prior. One on the right measures 8 x 6 mm axial image 24 i nferiorly. One on the left measures similar 8 x 6 mm anteriorly on axial image 27. No obvious additio nal concerning solid or cystic mass. Carotid/Vascular Structures: No suspicious abnormality. Osseous Structures: Dextroconvex scoliosis or positioning centered in the upper thoracic spine is pre sent. Other: No obvious greater than 1 cm neck adenopathy is seen bilaterally. IMPRESSION: No suspicious enlargement in the left parotid gland. There are prominent intraparotid lym ph nodes appreciated bilaterally which is nonspecific finding. Advise repeat imaging if the area of c oncern left parotid gland is felt to continue to enlarge or becomes painful. [facility], , 10/24/2024 12:21 PM
== END | disposition home or self-care (01) ==
LOC: RADCTMAIN 09:57
PROVIDERS: ATTEND Otolaryngology
DX: R22.1 Localized swelling, mass and lump, neck (principal)
CPT/HCPCS: 82565; 84520; 70491; 36415; Q9967